=== PATIENT | female | born 1975 | race Two or more races ===

== ENCOUNTER 2017-04-01 20:26 | Inpatient (IN) | payer OTHER ==
[2017-04-01 20:30] VITALS: BMI 36.7
--- NOTE | 2017-04-01 20:57 | PDOC ---
History of Present Illness - General Chief Complaint: Vaginal Bleeding Stated Complaint: VAGINAL BLEEDING Time Seen by Provider: 04/01/17 20:37 History Source: Patient Exam Limitations: No Limitations - History of Present Illness Travel History: No Initial Comments: 04/01/17 22:08 LMP: 01/12/2017 41-year-old female with no medical history presents to the emergency department complaining of vaginal bleeding with pelvic cramps. Pain is described as 6/10 dull nonradiating constant cramping with moderate vaginal bleed. Patient was seen in the emergency department 3 days ago and was diagnosed with demise at approximately 12 weeks gestation. Patient denies headache, dizziness, lightheadedness, nausea/vomiting, fever/chills, chest pain, shortness of breath , flank pains, urinary symptoms: Frequency/urgency/hesitancy, hematuria. Past History - Past Medical History Allergies/Adverse Reactions: Allergies Allergy/AdvReac Type Severity Reaction Status Date / Time No Known Allergies Allergy Verified 04/01/17 20:30 Home Medications: Ambulatory Orders NK [No Known Home Medication] 03/30/17 Anemia: No Asthma: Yes - Reproductive History (#): 6 Para: 5 - Psycho/Social/Smoking Cessation Hx Anxiety: No Suicidal Ideation: No Smoking History: Never smoked Have you smoked in the past 12 months: No Hx Alcohol Use: No Drug/Substance Use Hx: No Substance Use Type: None Abd/GI Specific PMHX - Complaint Specific PMHX Colitis: No Diverticulitis: No Gall Bladder Disease: No GERD: No Hepatitis: No Irritable Bowel Synd (IBS): No GI Ulcer Disease: No Review of Systems - Review of Systems Able to Perform ROS?: Yes Comments:: 04/01/17 22:09 CONSTITUTIONAL: Absent: fever, chills, diaphoresis, generalized weakness, malaise, loss of appetite HEENT: Absent: rhinorrhea, nasal congestion, throat pain, throat swelling, difficulty swallowing, mouth swelling, ear pain, eye pain, visual Changes CARDIOVASCULAR: Absent: chest pain, loss of consciousness, palpitations, irregular heart rate, peripheral edema RESPIRATORY: Absent: cough, shortness of breath, dyspnea with exertion, orthopnea, wheezing, stridor, hemoptysis GASTROINTESTINAL: Absent: abdominal pain, abdominal distension, nausea, vomiting, diarrhea, constipation, melena, hematochezia GENITOURINARY: Absent: dysuria, frequency, urgency, hesitancy, hematuria, flank pain, genital pain MUSCULOSKELETAL: Absent: myalgia, arthralgia, joint swelling SKIN: Absent: rash, itching, pallor HEMATOLOGIC/IMMUNOLOGIC: Absent: easy bleeding, easy bruising, lymphadenopathy, frequent infections ENDOCRINE: Absent: unexplained weight gain, unexplained weight loss, heat intolerance, cold intolerance NEUROLOGIC: Absent: headache, focal weakness or paresthesias, dizziness, unsteady gait, seizure, mental status changes, bladder or bowel incontinence PSYCHIATRIC: Absent: anxiety, depression, suicidal or homicidal ideation, hallucinations. Is the patient limited Latvian proficient: No *Physical Exam - Vital Signs Last Vital Signs Temp Pulse Resp BP Pulse Ox 98 F 66 18 147/81 99 04/01/17 20:27 04/01/17 20:27 04/01/17 20:27 04/01/17 20:27 04/01/17 20:27 - Physical Exam Comments: 04/01/17 22:09 GENERAL: Well developed, well nourished. Awake and alert. No acute distress. HEENT: Normocephalic, atraumatic. PERRLA, EOMI. No conjunctival pallor. Sclera are non- icteric. Moist mucous membranes. Oropharynx is clear. NECK: Supple. Full ROM. No JVD. Carotid pulses 2+ and symmetric, without bruits. No thyromegaly. No lymphadenopathy. CARDIOVASCULAR: Regular rate and rhythm. No murmurs, rubs, or gallops. Distal pulses are 2+ and symmetric. PULMONARY: No evidence of respiratory distress. Lungs clear to auscultation bilaterally. No wheezing, rales or rhonchi. ABDOMINAL: Soft. Non-tender. Non-distended. No rebound or guarding. No organomegaly. Normoactive bowel sounds. MUSCULOSKELETAL Normal range of motion at all joints. No bony deformities or tenderness. No CVA tenderness. EXTREMITIES: No cyanosis. No clubbing. No edema. No calf tenderness. SKIN: Warm and dry. Normal capillary refill. No rashes. No jaundice. NEUROLOGICAL: Alert, awake, appropriate. Cranial nerves 2-12 intact. No deficits to light touch and temperature in face, upper extremities and lower extremities. No motor deficits in the in face, upper extremities and lower extremities. Normoreflexic in the upper and lower extremities. Normal speech. Toes are down- going bilaterally. Gait is normal without ataxia. PSYCHIATRIC: Cooperative. Good eye contact. Appropriate mood and affect. Pelvic: External genitalia normal without lesions. Vaginal vault is clear without blood or discharge. Cervix is long and closed. No cervical motion tenderness. Uterus is nontender and normal in size. Adnexa are nontender and without masses. ED Treatment Course - LABORATORY CBC & Chemistry Diagram: 04/01/17 21:07 04/01/17 21:07 - RADIOLOGY Radiograph Interpretation: 04/01/17 22:28 THIS IS A PRELIMINARY REPORT FROM [facility] EXAM: Ultrasound OB less than 14 weeks transabdominal and ultrasound OB less than 14 weeks transvaginal and ultrasound color duplex IMAGES: 50 EXAM DATE AND TIME: 2017-04-01 21:07: 28.0 REASON FOR EXAM: 41-year-old female with vaginal bleeding demise 2 days ago. COMPARISON: None. FINDINGS: Within the endometrium there is a gestational sac. pole crown-rump length measurement equals 7 weeks one day. No heart motion identified. The uterus measures 9.9 x 5.1 x 6.3 cm. There is no evidence of myometrial masses. The right ovary measures 2.5 x 1.6 x 1.5 cm. There are no right ovarian masses. The left ovary is not identified. There is no free fluid in the pelvis. COLOR DUPLEX: There is satisfactory perfusion to the right ovary with normal appearing arterial and venous spectral waveforms. IMPRESSION: Within endometrium there is a gestational sac and pole with no heart motion identified. This is most likely due to demise. If clinically indicated followup evaluation may be needed. No evidence of right ovarian torsion. Left ovary is not identified Progress Note - Progress Note Progress Note: 2320hrs: Spoke to Dr. 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 will come do a D&C in the OR now *DC/Admit/Observation/Transfer Diagnosis at time of Disposition: Retained products of conception - Discharge Dispostion Condition at time of disposition: Guarded Admit: Yes - Referrals Referrals: Rhona Mahmood [Primary Care Provider] - Olimpia Florez MD [Staff Physician] - - Patient Instructions Additional Instructions: Follow up with Dr. Florez Return to the ER for severe/persistent/worsening symptoms
[2017-04-01] MEDS ORDERED: SODIUM CHLORIDE 1,000 ML IV STA (21:13)
[2017-04-01 21:17] LABS: BASOPHIL 0.4 % (0-2.0); EOSINOPHIL 4.5 % (0-4.5); MCH 29.5 pg (25.7-33.7); MEAN CELL VOLUME 89.5 fl (80-96); NEUTROPHILS 41.9 % (42.8-82.8); PLATELET COUNT 214 K/MM3 (134-434); URINE APPEARANCE CLOUDY; URINE BILIRUBIN NEGATIVE (NEGATIVE); URINE COLOR RED; URINE GLUCOSE (UA) NEGATIVE (NEGATIVE); URINE KETONE NEGATIVE (NEGATIVE); URINE LEUK ESTERASE NEGATIVE (NEGATIVE); URINE NITRITE NEGATIVE (NEGATIVE); URINE UROBILINOGEN NEGATIVE mg/dL (0.2-1.0); WHITE BLOOD COUNT 9.9 K/mm3 (4.0-10.0)
[2017-04-01 21:31] LABS: URINE BLOOD 3+ (NEGATIVE)
[2017-04-01 21:32] LABS: URINE PROTEIN 2+ (NEGATIVE)
[2017-04-01 21:59] LABS: URINE RBC 5526 /hpf (0-3); URINE WBC NONE SEEN /hpf (3-5)
[2017-04-01 22:00] LABS: URINE MUCUS FEW
--- NOTE | 2017-04-01 22:33 | PDOC ---
*Physical Exam - Vital Signs Last Vital Signs Temp Pulse Resp BP Pulse Ox 98 F 66 18 147/81 99 04/01/17 20:27 04/01/17 20:27 04/01/17 20:27 04/01/17 20:27 04/01/17 20:27 - Physical Exam Comments: 04/01/17 22:33 The patient was examined by [SUSANA Rivers] under my direct supervision. I personally evaluated the patient. I concur with the above findings and the plan of care. ED Treatment Course - LABORATORY CBC & Chemistry Diagram: 04/01/17 21:07 04/01/17 21:07 - ADDITIONAL ORDERS Additional order review: Laboratory Results 04/01/17 04/01/17 04/01/17 21:07 21:07 21:07 Sodium Cancelled Potassium Cancelled Chloride Cancelled Carbon Dioxide Cancelled Anion Gap Cancelled BUN Cancelled Creatinine Cancelled Creat Clearance w eGFR Cancelled Random Glucose Cancelled Calcium Cancelled Total Bilirubin Cancelled AST Cancelled ALT Cancelled Alkaline Phosphatase Cancelled Total Protein Cancelled Albumin Cancelled Beta HCG, Quant Cancelled Urine Color Red Urine Appearance Cloudy Urine pH 6.0 Urine Protein 2+ H Urine Glucose (UA) Negative Urine Ketones Negative Urine Blood 3+ H Urine Nitrite Negative Urine Bilirubin Negative Urine Urobilinogen Negative Ur Leukocyte Esterase Negative Urine RBC 5526 Cancelled Urine WBC None seen Cancelled Ur Epithelial Cells Few Cancelled Urine Crystals Cancelled Calcium Oxalate Crystal Cancelled Uric Acid Crystals Cancelled Triple Phos Crystals Cancelled Amorphous Phosphates Cancelled Amorphous Urates Cancelled Amorphous Sediment Cancelled Urine Bacteria Cancelled Urine Casts Cancelled Hyaline Casts Cancelled Granular Casts Cancelled Waxy Casts Cancelled RBC Casts Cancelled WBC Casts Cancelled Urine Mucus Few Cancelled Urine Other Cancelled Urine Trichomonas Cancelled Urine Yeast Cancelled 04/01/17 21:07 RBC 4.85 MCV 89.5 MCHC 33.0 RDW 13.0 MPV 9.0 Neutrophils % 41.9 L Lymphocytes % 46.4 H Monocytes % 6.8 Eosinophils % 4.5 Basophils % 0.4 - Medications Given in the ED: ED Medications Discontinued Medications Generic Name Dose Route Start Last Admin Trade Name Freq PRN Reason Stop Dose Admin Sodium Chloride 1,000 mls @ 1,000 mls/hr 04/01/17 21:13 04/01/17 21:25 Normal Saline - IV 04/01/17 22:12 1,000 mls/hr ASDIR STA Administration *DC/Admit/Observation/Transfer Diagnosis at time of Disposition: Retained products of conception - Discharge Dispostion Condition at time of disposition: Guarded
[2017-04-01 22:52] LABS: ALBUMIN 3.3 g/dl (3.4-5.0); ANION GAP 8 (8-16); CALCIUM 8.7 mg/dL (8.5-10.1); CO2 26 mmol/L (21-32); CREATININE 0.6 mg/dL (0.55-1.02); GLUCOSE,RANDOM 97 mg/dL (74-106); SGOT/AST 16 U/L (15-37); SGPT/ALT 23 U/L (12-78); TOT PROT 6.7 g/dl (6.4-8.2)
[2017-04-01 23:08] LABS: ALK PHOS 105 U/L (45-117)
[2017-04-01 23:09] LABS: BILIRUBIN,TOTAL < 0.1 mg/dL (0.2-1.0)
--- NOTE | 2017-04-02 00:45 | CON.OBG ---
Consult Consult Specialty:: OBGYN Reason for Consultation:: Vaginal bleeding in - History of Present Illness Chief Complaint: Vaginal bleeding History of Present Illness: 41 yo seen in ER for vaginal bleeding 2 days ago, returned c/o worsening of bleeding and abdominal pain. Sonogram done and failed to show heart rate. BHCG dropped from 6000 mIU to 2000 mIU. - History Source History Provided By: Patient Limitations to Obtaining History: No Limitations - Past Medical History ...: Yes ...: 6 ...Para: 6 - Past Surgical History Past Surgical History: Yes: None - Alcohol/Substance Use Hx Alcohol Use: No History of Substance Use: reports: None - Smoking History Smoking history: Never smoked Have you smoked in the past 12 months: No - Social History Usual Living Arrangement: With Spouse History of Recent Travel: No Home Medications - Allergies Allergies/Adverse Reactions: Allergies Allergy/AdvReac Type Severity Reaction Status Date / Time No Known Allergies Allergy Verified 04/01/17 20:30 - Home Medications Home Medications: Ambulatory Orders NK [No Known Home Medication] 03/30/17 Family Disease History - Family Disease History Family History: Unremarkable Review of Systems - Review of Systems Constitutional: reports: No Symptoms Eyes: reports: No Symptoms HENT: reports: No Symptoms Neck: reports: No Symptoms Cardiovascular: reports: No Symptoms Respiratory: reports: No Symptoms Gastrointestinal: reports: No Symptoms Genitourinary: reports: Pain, Vaginal Bleeding Breasts: reports: No Symptoms Reported Musculoskeletal: reports: No Symptoms Integumentary: reports: No Symptoms Neurological: reports: No Symptoms Endocrine: reports: No Symptoms Hematology/Lymphatic: reports: No Symptoms Psychiatric: reports: No Symptoms Pain Intensity: 3 Physical Exam-PIPE BUFFER Vital Signs: Vital Signs Temperature 98 F 04/01/17 20:27 Pulse Rate 66 04/01/17 20:27 Respiratory Rate 18 04/01/17 20:27 Blood Pressure 147/81 04/01/17 20:27 O2 Sat by Pulse Oximetry (%) 100 04/01/17 23:23 Constitutional: Yes: Well Nourished Eyes: Yes: Conjunctiva Clear HENT: Yes: Atraumatic Neck: Yes: Supple, Trachea Midline Cardiovascular: Yes: Regular Rate and Rhythm Respiratory: Yes: Regular, CTA Bilaterally Gastrointestinal: Yes: Normal Bowel Sounds Vaginal Exam: Yes: Bleeding Uterus: Yes: Normal Integumentary: Yes: WNL Neurological: Yes: Alert, Oriented ...Motor Strength: WNL Psychiatric: Yes: Alert, Oriented Assessment/Plan Spontaneous Miscariage Pre op for suctioned D&C Consent signed Anesthesia to see patient
--- NOTE | 2017-04-02 00:49 | OP ---
Operative Note - Note: Operative Date: 04/02/17 Pre-Operative Diagnosis: Spontaneous miscariage Operation: Suction D&C Surgeon: Olimpia Florez Anesthesia: General Specimens Removed: Product of conception
[2017-04-02] MEDS ORDERED: METOCLOPRAMIDE HCL INJECTION 10 MG/2 ML VIAL ONE (01:12)
[2017-04-02] MEDS ORDERED: PROPOFOL 20 ML ONE ×2 (01:20→01:21)
[2017-04-02] MEDS ORDERED: SUCCINYLCHOLINE CHLORIDE 200 MG/10 ML VIAL ONE (01:21)
[2017-04-02] MEDS ORDERED: DESFLURANE GAS 240 ML BOTTLE IH ONE (01:21)
[2017-04-02] MEDS ORDERED: LIDOCAINE HCL/PF 2% SDV 5ML VIAL ONE (01:22)
[2017-04-02] MEDS ORDERED: ONDANSETRON 4 MG/2 ML VIAL ONE (01:40)
[2017-04-02] MEDS ORDERED: ONDANSETRON 4 MG/2 ML VIAL IVPUSH PRN (01:58)
[2017-04-02] MEDS ORDERED: PROMETHAZINE HCL 25 MG/1 ML VIAL IVPUSH PRN (01:58)
[2017-04-02] MEDS ORDERED: LACTATED RINGERS SOLUTION 1,000 ML IV SCH (02:00)
[2017-04-02 03:00] VITALS: BP 138/51; PULSE 117; TEMP 98.2
--- NOTE | 2017-04-03 13:23 | OP ---
DATE OF OPERATION: 04/02/2017 PREOPERATIVE DIAGNOSIS: Incomplete . POSTOPERATIVE DIAGNOSIS: Incomplete . PROCEDURE: Suction dilation and curettage. SURGEON: Olimpia Florez MD ANESTHESIA: General. COMPLICATIONS: None. ESTIMATED BLOOD LOSS: 10 mL. DESCRIPTION OF PROCEDURE: The patient was taken to the operating room where general anesthesia was administered. The patient was then placed in lithotomy position. She was then prepped and draped in appropriate sterile fashion. A weighted speculum was placed in the vagina. The anterior lip of the cervix was grasped with a single-tooth tenaculum. Then a 7-mm suction curette was then gently introduced into the uterine cavity. The suction curette was rotated to clear the uterus of products of conception. Then a sharp curettage was then performed. The suction curette was reintroduced to clear the uterus of all remaining products of conception. Then the instruments were removed. The patient was taken out of lithotomy position. She was taken to PACU in stable condition. PATHOLOGY: Products of conception. Anthony RUELAS/[id number]
--- NOTE | 2017-04-04 13:48 | PATH ---
Surgical Pathology Report Patient Name: VLADIMIR DAVILA Med. Rec. #: [id number] /Age/Gender: 1975 (Age: 41) / F Account: [id number] Location: [address] [place] [address]/[facility] Taken: 04/02/2017 Received: 04/03/2017 Reported: 04/04/2017 Physicians: Olimpia Florez M.D. Specimen(s) Received PRODUCTS OF CONCEPTION Clinical History Spontaneous miscarriage Final Diagnosis PRODUCTS OF CONCEPTION: SOMATIC TISSUE IDENTIFIED. CHORIONIC VILLUS TISSUE PRESENT, FOCALLY HYDROPIC. FRAGMENTS OF DECIDUA. Electronically Signed Tristen Gonzales M.D. Gross Description Received in formalin, labeled with "products of conception" is a 9 x 7 x 2.5 cm in aggregate size multiple fragments of burdick-red and burdick-henry hemorrhagic tissue with a 3.5 x 3 x 0.6 cm fragment of burdick-henry tissue on Telfa pad, which is consistent with chorionic villous tissue. [employer] sections are submitted in three cassettes as follows: Cassettes #1 and 2 - chorionic tissue, cassette #3 -additional section of hemorrhagic tissue. AF/04/03/2017 final/04/03/2017
== END 2017-04-02 04:00 | disposition home or self-care (01) | DRG 544 ==
LOC: JER 20:26 → MERGE 23:35 → J6S 23:35
PROVIDERS: ADMIT Obstetrics & Gynecology; ATTEND Obstetrics & Gynecology
PROC: 10D17ZZ Extraction of Products of Conception, Retained, Via Natural or Artificial Opening (ICD-10-PCS; principal; 2017-04-02 00:10)
DX: O03.4 Incomplete spontaneous abortion without complication (principal); E66.9 Obesity, unspecified; Z68.36 Body mass index [BMI] 36.0-36.9, adult
CPT/HCPCS: 36415; 76817-TC; 80053; 81003; 81015; 84702; 85025; 86850; 86870; 86900; 86901; 86902; 88305-TC; 94760; 99285-25

== ENCOUNTER 2017-04-14 21:01 | Emergency (ER) | payer OTHER ==
[2017-04-14 21:23] VITALS: BP 172/86; PULSE 102; TEMP 98; BMI 35.6
[2017-04-14] MEDS ORDERED: LORazepam 0.5 MG TABLET ONE (21:42)
[2017-04-14] MEDS ORDERED: LORazepam 0.5 MG TABLET PO ONE (21:43)
--- NOTE | 2017-04-14 21:43 | PDOC ---
History of Present Illness - General Chief Complaint: Psychiatric Stated Complaint: PANIC ATTACK Time Seen by Provider: 04/14/17 21:27 History Source: Patient, Spouse Exam Limitations: No Limitations - History of Present Illness Initial Comments: 04/14/17 21:43 Patient came with for evaluation of mild to moderate Kiley contact. States had a miscarriage 2 weeks ago here, with DNC procedure that was uneventful. Was an unplanned . States since that time has had progressive anxiety where today she saw her PMD and was told had hypercholesterolemia. States that caused her anxiety to increase and she is felt short of breath and nervous since that time. Denies palpitations but states feels heart is racing, no dizziness and no hyperventilation but feels some air hunger. Suffered same type of panic attacks approximately 8 years ago for approximately 8 months, requiring medication but that psychiatric situation resolved. Denies homicidal or suicidal ideation 04/14/17 21:46 04/14/17 21:48 Timing/Duration: unsure, getting worse Severity: mild Associated Symptoms: reports: denies symptoms Past History - Travel Traveled outside of the country in the last 30 days: No Close contact w/someone who was outside of country & ill: No - Past Medical History Allergies/Adverse Reactions: Allergies Allergy/AdvReac Type Severity Reaction Status Date / Time No Known Allergies Allergy Verified 04/14/17 21:19 Home Medications: Ambulatory Orders Ciprofloxacin HCl/Dexameth [Ciprodex Otic Suspension] 4 drop BID #1 bottle Mag Hydrox/Alh/Smc/Dpha/Lido [Magic Mouthwash *Sjr Formula* -] 5 ml MM Q6HPO #1 mouthwash 07/04/16 NK [No Known Home Medication] 03/30/17 Anemia: No Asthma: Yes - Reproductive History (#): 6 Para: 5 - Psycho/Social/Smoking Cessation Hx Anxiety: Yes Suicidal Ideation: No Smoking Status: No Smoking History: Never smoked Have you smoked in the past 12 months: No Number of Cigarettes Smoked Daily: 0 Information on smoking cessation initiated: No Hx Alcohol Use: No Drug/Substance Use Hx: No Substance Use Type: None Hx Substance Use Treatment: No Review of Systems - Review of Systems Able to Perform ROS?: Yes Is the patient limited Occitan proficient: Yes Constitutional: Yes: See HPI, Malaise. No: Symptoms Reported, Chills, Fever, Loss of Appetite HEENTM: Yes: See HPI. No: Symptoms Reported Respiratory: Yes: See HPI. No: Symptoms reported Neurological: No: Symptoms reported Psychiatric: Yes: Anxiety, Depression, Stressors All Other Systems: Reviewed and Negative *Physical Exam - Vital Signs Last Vital Signs Temp Pulse Resp BP Pulse Ox 98.0 F 102 H 20 172/86 98 04/14/17 21:19 04/14/17 21:19 04/14/17 21:19 04/14/17 21:19 04/14/17 21:19 - Physical Exam General Appearance: Yes: Nourished, Appropriately Dressed. No: Apparent Distress HEENT: positive: ART, Normal ENT Inspection, Normal Voice, TMs Normal, Pharynx Normal Neck: positive: Supple. 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 Patient post / miscarriage 2 weeks. Encouraged follow-up with PMD and given one dose of 0.5 mg of Ativan and instructed to take one half that dose to take edge off tonight and encouraged using holistic methods until evaluated by PMD and possible further therapy as needed. *DC/Admit/Observation/Transfer Diagnosis at time of Disposition: Panic attacks - Discharge Dispostion Disposition: HOME Condition at time of disposition: Stable Admit: No - Patient Instructions Printed Discharge Instructions: DI for Panic Disorder, Anxiety and Panic Attacks (Alternative Therapy) Additional Instructions: Rest, avoid strenuous activity or exercise until feelings of well being May try yoga or other relaxation techniques to help calm May take one half of tablet 0.5 mg Ativan and repeat in 8 hours if needed May use Benadryl for calming agent and [id number] medications and holistic medications including chamomile tea, soups, old-fashioned remedies Call and see PMD Monday to notify of need for anti-anxiety medication and perhaps further treatment.
== END 2017-04-14 22:00 | disposition home or self-care (01) ==
LOC: JER 21:01 → JERFT 21:01
DX: F41.0 Panic disorder [episodic paroxysmal anxiety] (principal); J45.909 Unspecified asthma, uncomplicated
CPT/HCPCS: 99281-25

== ENCOUNTER 2017-06-04 10:43 | Emergency (ER) | payer OTHER ==
[2017-06-04 10:53] VITALS: BP 142/71; PULSE 99; TEMP 98.7; BMI 35.7
[2017-06-04] MEDS ORDERED: ALBUTEROL SO4 2.5/IPRATROPIUM 0.5 INH SOL 3 ML VIAL.NEB. NEB ONE (11:02)
--- NOTE | 2017-06-04 11:46 | PDOC ---
History of Present Illness - General Chief Complaint: Asthma Stated Complaint: DIFFICULTY OF BREATH Time Seen by Provider: 06/04/17 11:39 History Source: Patient Exam Limitations: No Limitations - History of Present Illness Initial Comments: 06/04/17 11:42 Patient is a 42-year-old female with history of asthma and anxiety reports yesterday started to develop a cough cold-like symptoms, today started wheezing and had difficulty breathing. Patient able to speak full sentences, no acute distress, nasal congestion noted. Past Medical History: Denies. Allergies: No known allergies Medications: None Family History: Non-contributory Social History: Denies smoking, alcohol use, or IVDU Vital signs on arrival are notable for pulse of 96. Review of Systems GENERAL/CONSTITUTIONAL: No fever or chills. No weakness. No weight change. HEAD, EYES, EARS, NOSE AND THROAT: + nasal congestion No change in vision. No ear pain or discharge. No sore throat. CARDIOVASCULAR: No chest pain or shortness of breath. RESPIRATORY: + cough, + wheezing, no hemoptysis. GASTROINTESTINAL: No nausea, vomiting, diarrhea or constipation. No rectal bleeding. GENITOURINARY: No dysuria, frequency, or change in urination. MUSCULOSKELETAL: No joint or muscle swelling or pain. No neck or back pain. SKIN : No rash or easy bruising. NEUROLOGIC: No headache, vertigo, loss of consciousness, or loss of sensation. PSYCHIATRIC: No depression or anxiety. ENDOCRINE: No increased thirst. No abnormal weight change. HEMATOLOGIC/LYMPHATIC: No anemia, easy bleeding, or history of blood clots. ALLERGIC/IMMUNOLOGIC: No hives or skin allergy. No latex allergy. Physical Exam: GENERAL: The patient is awake, alert, and fully oriented, in no acute distress. HEAD: Normal with no signs of trauma. EYES: Pupils equal, round and reactive to light, extraocular movements intact, sclera anicteric, conjunctiva clear. ENT: Ears normal, nares patent, oropharynx clear without exudates. Moist mucous membranes. No uvula deviation NECK: Normal range of motion, supple without lymphadenopathy, JVD, or masses. LUNGS: Breath sounds equal, expiratory wheezes, no crackles, positive rhonchi HEART: Regular rate and rhythm, normal S1 and S2 without murmur, rub or gallop. ABDOMEN: Soft, nontender, normoactive bowel sounds. No guarding, no rebound. No masses. No bruising or abrasions MUSCULOSKELETAL: Normal range of motion, no edema. No clubbing or cyanosis. No cords, erythema, or tenderness. No CVA Tenderness with fist. NEUROLOGICAL: Cranial nerves II through XII grossly intact. Normal speech, normal gait. SKIN: Warm, Dry, normal turgor, no rashes or lesions noted. Past History - Past Medical History Allergies/Adverse Reactions: Allergies Allergy/AdvReac Type Severity Reaction Status Date / Time No Known Allergies Allergy Verified 06/04/17 10:53 Home Medications: Ambulatory Orders Albuterol Sulfate Inhaler - [Ventolin HFA Inhaler -] 1 - 2 inh PO Q4H #1 inhaler 06/04/17 Azithromycin [Zithromax 250mg Tablets -] 250 mg PO UTDICT #6 tab 06/04/17 Anemia: No Asthma: Yes Psychiatric Problems: Yes (anxiety, not on meds) - Reproductive History (#): 6 Para: 5 - Suicide/Smoking/Psychosocial Hx Smoking Status: No Smoking History: Never smoked Have you smoked in the past 12 months: No Number of Cigarettes Smoked Daily: 0 Information on smoking cessation initiated: No Hx Alcohol Use: No Drug/Substance Use Hx: No Substance Use Type: None Hx Substance Use Treatment: No *Physical Exam - Vital Signs Last Vital Signs Temp Pulse Resp BP Pulse Ox 98.7 F 99 H 19 142/71 100 06/04/17 10:51 06/04/17 10:51 06/04/17 10:51 06/04/17 10:51 06/04/17 10:51 ED Treatment Course - Medications Given in the ED: ED Medications Discontinued Medications Generic Name Dose Route Start Last Admin Trade Name Freq PRN Reason Stop Dose Admin Albuterol/Ipratropium 1 amp 06/04/17 11:02 06/04/17 11:03 Duoneb - NEB 06/04/17 11:03 1 amp NOW ONE Administration Medical Decision Making - Medical Decision Making 06/04/17 11:46 A/P: Patient here for asthma exacerbation with upper respiratory infection. Patient with audible wheezes and rhonchi, Combivent treatment given with good result second albuterol given. Patients lungs clear after treatment. Please see patient home on albuterol as needed, azithromycin. PMD in 3 days if symptoms persist. I discussed the physical exam findings, ancillary test results and final diagnoses with the patient. I answered all of the patient's questions. The patient was satisfied with the care received and felt comfortable with the discharge plan and treatment plan. The patient will call to arrange follow-up and will return to the Emergency Department with any new, persistent or worsening symptoms. *DC/Admit/Observation/Transfer Diagnosis at time of Disposition: Upper respiratory infection Qualifiers: URI type: unspecified URI Qualified Code(s): J06.9 - Acute upper respiratory infection, unspecified - Discharge Dispostion Disposition: HOME Condition at time of disposition: Good Admit: No - Prescriptions Prescriptions: Albuterol Sulfate Inhaler - [Ventolin HFA Inhaler -] 1 - 2 inh PO Q4H #1 inhaler Azithromycin [Zithromax 250mg Tablets -] 250 mg PO UTDICT #6 tab - Patient Instructions Printed Discharge Instructions: Asthma -- Adult Additional Instructions: Keep head of bed elevated 45 when sleeping Albuterol every 4 hours as needed Cool air humidifier at night Antibiotics as ordered until completed Motrin for fever greater than 101 Followup in the primary care doctor's office in 2 days for evaluation. If any respiratory distress, increased cough, inability to drink, increased wheezing please return immediately to emergency department. - Post Discharge Activity Forms/Work/School Notes: Back to Work
[2017-06-04] MEDS ORDERED: ALBUTEROL SO4 0.083% IH SOL 2.5 MG/3 ML VIAL.NEB. NEB ONE (11:56)
== END 2017-06-04 12:50 | disposition home or self-care (01) ==
LOC: JERFT 10:43
PROC: 3E0F7GC Introduction of Other Therapeutic Substance into Respiratory Tract, Via Natural or Artificial Opening (ICD-10-PCS; principal; 2017-06-04)
PROC: 3E0F7GC Introduction of Other Therapeutic Substance into Respiratory Tract, Via Natural or Artificial Opening (ICD-10-PCS; 2017-06-04)
DX: J45.901 Unspecified asthma with (acute) exacerbation (principal); J06.9 Acute upper respiratory infection, unspecified
CPT/HCPCS: 94640; 99281-25

== ENCOUNTER 2017-06-04 22:55 | Emergency (ER) | payer OTHER ==
[2017-06-04 23:17] VITALS: BMI 35.6
[2017-06-05] MEDS ORDERED: ALBUTEROL SO4 2.5/IPRATROPIUM 0.5 INH SOL 3 ML VIAL.NEB. NEB ONE ×2 (00:29)
[2017-06-05] MEDS ORDERED: DEXAMETHASONE LIQUID 0.5 MG/5 ML 240 ML BULK BOTTLE PO ONE (00:42)
[2017-06-05] MEDS ORDERED: DEXAMETHASONE SOD PHOSPHATE 10 MG/1 ML VIAL ONE (00:54)
--- NOTE | 2017-06-05 01:05 | PDOC ---
History of Present Illness - General Chief Complaint: Respiratory Stated Complaint: ASTHMA ATTACK Time Seen by Provider: 06/04/17 23:59 - History of Present Illness Initial Comments: 06/05/17 01:04 CHIEF COMPLAINT: cough, SOB HISTORY OF PRESENT ILLNESS: 42 yo F with hx of asthma presents to ED with cough since yesterday. Patient was seen in fast track earlier today for wheezing and SOB and was discharged home with azithromycin and albuterol pump. Patient states she used the albuterol pump three times without relief and continued having wheezing and SOB. Patient is in no respiratory distress on arrival. Patient denies any fever, chills, nausea, vomiting, diarrhea. No recent travel or sick contacts. PAST MEDICAL HISTORY: asthma FAMILY HISTORY: Denies SOCIAL HISTORY: Denies tobacco, alcohol, illicit drug use. SURGICAL HISTORY: Denies ALLERGIES: No known drug allergies REVIEW OF SYSTEMS General/Constitutional: Denies fever or chills. Denies weakness, weight change. Cardiovascular: Denies chest pain. Respiratory: Cough x 2 days, wheezing. Gastrointestinal: Denies nausea, vomiting, diarrhea or constipation. PHYSICAL EXAM General Appearance: Well-appearing, appropriately dressed. No apparent distress , no intoxication. HEENT: EOMI, PERRLA, normal ENT inspection, normal voice, TMs normal, pharynx normal. No conjunctival pallor. No photophobia, scleral icterus. Respiratory/Chest: Diffuse wheezing bilaterally. No shortness of breath, chest tenderness, respiratory distress, accessory muscle use. No crackles, rales, rhonchi, stridor,dullness Cardiovascular: RRR. S1, S2. Gastrointestinal/Abdominal: Normal bowel sounds. Abdomen soft, non-distended. No tenderness or rebound tenderness. No organomegaly, pulsatile mass, guarding , hernia, hepatomegaly, splenomegaly. Musculoskeletal/Extremities: Normal inspection. FROM of all extremities, normal capillary refill. Pelvis Stable. No CVA tenderness. No tenderness to extremities, pedal edema, swelling, erythema or deformity. Integumentary: Appropriate color, dry, warm. No cyanosis, erythema, jaundice or rash Neurologic: classroom technology coach II-XII intact. Fully oriented, alert. Appropriate mood/affect. Motor strength 5/5. No appreciable EOM palsy, facial droop or sensory deficit. 06/05/17 02:46 Past History - Past Medical History Allergies/Adverse Reactions: Allergies Allergy/AdvReac Type Severity Reaction Status Date / Time No Known Allergies Allergy Verified 06/04/17 23:14 Home Medications: Ambulatory Orders Albuterol Sulfate Inhaler - [Ventolin HFA Inhaler -] 1 - 2 inh PO Q4H #1 inhaler 06/04/17 Azithromycin [Zithromax 250mg Tablets -] 250 mg PO UTDICT #6 tab 06/04/17 Anemia: No Asthma: Yes Psychiatric Problems: Yes (anxiety, not on meds) - Reproductive History (#): 6 Para: 5 - Suicide/Smoking/Psychosocial Hx Smoking Status: No Smoking History: Never smoked Have you smoked in the past 12 months: No Number of Cigarettes Smoked Daily: 0 Information on smoking cessation initiated: No Hx Alcohol Use: No Drug/Substance Use Hx: No Substance Use Type: None Hx Substance Use Treatment: No *Physical Exam - Vital Signs Last Vital Signs Temp Pulse Resp BP Pulse Ox 98.6 F 115 H 20 154/89 96 06/04/17 23:15 06/04/17 23:15 06/04/17 23:15 06/04/17 23:15 06/04/17 23:15 ED Treatment Course - RADIOLOGY Radiology Studies Ordered: Category Date Time Status CHEST PA & LAT [RAD] Stat Radiology 06/05/17 00:42 Ordered - Medications Given in the ED: ED Medications Discontinued Medications Generic Name Dose Route Start Last Admin Trade Name Freq PRN Reason Stop Dose Admin Albuterol/Ipratropium 1 amp 06/05/17 00:00 06/05/17 00:34 Duoneb - NEB 06/05/17 00:01 1 amp ONCE ONE Administration Dexamethasone 10 mg 06/05/17 00:42 06/05/17 00:57 Decadron Liquid - PO 06/05/17 00:43 10 mg ONCE ONE Administration Medical Decision Making - Medical Decision Making 06/05/17 02:49 42 yo F with hx of asthma presents to ED with cough since yesterday. -CXR -Duoneb -Decadron 10 mg po CXR negative for infiltrates. Patient reassessed; lungs CTAB and patient reports feeling better at this time. Advised patient to complete medications as prescribed and f/u with PCP by the end of the week. Advised patient of signs and symptoms for return to ER; patient verbalized understanding and agrees to plan. *DC/Admit/Observation/Transfer Diagnosis at time of Disposition: Asthma attack, Bronchitis - Discharge Dispostion Disposition: HOME Condition at time of disposition: Stable Admit: No - Referrals Referrals: Megan Tsang [Primary Care Provider] - - Patient Instructions Printed Discharge Instructions: DI for Acute Bronchitis, DI for Asthma -- Adult Additional Instructions: As discussed, please finish the medication prescribed to you earlier today. If you develop fever, chills, nausea, vomiting, diarrhea, or worsening shortness of breath unrelieved by your albuterol pump, or any new or worsening symptoms, please return to the ER.
[2017-06-05 02:49] VITALS: BP 120/73; PULSE 85; TEMP 98.2
== END 2017-06-05 02:52 | disposition home or self-care (01) ==
LOC: JER 22:55
PROC: 3E0F7GC Introduction of Other Therapeutic Substance into Respiratory Tract, Via Natural or Artificial Opening (ICD-10-PCS; principal; 2017-06-04)
DX: J45.901 Unspecified asthma with (acute) exacerbation (principal); J40 Bronchitis, not specified as acute or chronic
CPT/HCPCS: 71020-TC; 84703; 99282-25

== ENCOUNTER 2017-07-04 11:05 | Emergency (ER) | payer OTHER ==
[2017-07-04 11:14] VITALS: BP 141/98; PULSE 107; TEMP 98.1; BMI 34.9
== END 2017-07-04 12:47 | disposition left against medical advice (07) ==
LOC: JER 11:05
DX: Z53.21 Procedure and treatment not carried out due to patient leaving prior to being seen by health care provider (principal)
CPT/HCPCS: 99281-25

== ENCOUNTER 2017-08-16 01:36 | Emergency (ER) | payer OTHER ==
[2017-08-16] MEDS ORDERED: predniSONE 20 MG TABLET (UD) PO ONE (02:17)
[2017-08-16] MEDS ORDERED: ALBUTEROL SO4 0.083% IH SOL 2.5 MG/3 ML VIAL.NEB. NEB ONE ×2 (02:17→02:27)
--- NOTE | 2017-08-16 02:17 | PDOC ---
History of Present Illness - General Exam Limitations: No Limitations - History of Present Illness Initial Comments: 08/16/17 02:40 Patient is a 42 year old female with a significant past medical history of asthma, HLD, and depression who presents to the ED with complaints of SOB that began 3 days ago. Patient reports experiencing sudden onset episodes of SOB while at home with no signs of subsiding. She reports using her inhaler multiple times over the last 3 days with no relief. Patient reports not being on steroids recently but states she has taken them in the past when prescribed. Denies chest pain. Denies nausea, vomiting. Denies fevers, chills. Denies contact with sick individuals, out of state travel. Denies any other symptoms. Allergies: None Social history: No smoking. No alcohol. No illicit drugs. Surgical history: None PMD: Dr. Megan Tsang <Walter Roach - Last Filed: 08/16/17 02:40> - General History Source: Patient <Gabino Galvan - Last Filed: 08/16/17 02:59> - General Stated Complaint: ASTHMA Time Seen by Provider: 08/16/17 02:14 Past History <Walter Roach - Last Filed: 08/16/17 02:40> - Past Medical History Anemia: No Asthma: Yes COPD: No Psychiatric Problems: Yes (anxiety, not on meds) - Reproductive History (#): 6 Para: 5 - Suicide/Smoking/Psychosocial Hx Smoking Status: No Smoking History: Never smoked Have you smoked in the past 12 months: No Number of Cigarettes Smoked Daily: 0 Hx Alcohol Use: No Drug/Substance Use Hx: No Substance Use Type: None Hx Substance Use Treatment: No <Gabino Galvan - Last Filed: 08/16/17 02:59> - Past Medical History Allergies/Adverse Reactions: Allergies Allergy/AdvReac Type Severity Reaction Status Date / Time No Known Allergies Allergy Verified 08/16/17 02:20 Home Medications: Ambulatory Orders Azithromycin [Zithromax 250mg Tablets -] 250 mg PO UTDICT #6 tab 06/04/17 Meclizine HCl [Antivert -] 25 mg PO QID #28 tablet 07/17/17 Albuterol 0.083% Nebulizer Dahlia [Ventolin 0.083% Nebulizer Soln -] 1 neb NEB Q6H #30 vial 08/16/17 Albuterol Sulfate Inhaler - [Ventolin HFA Inhaler -] 1 - 2 inh PO Q4H #1 inhaler 08/16/17 Prednisone [Deltasone -] 40 mg PO DAILY #10 tablet 08/16/17 Review of Systems - Review of Systems Able to Perform ROS?: Yes Comments:: 08/16/17 02:40 CONSTITUTIONAL: Absent: fever, no chills, no fatigue EYES: Absent: visual changes ENT: Absent: ear pain, no sore throat CARDIOVASCULAR: Absent: chest pain, no palpitations RESPIRATORY: +SOB Absent: GI: Absent: abdominal pain, no nausea, no vomiting, no constipation, no diarrhea GENITOURINARY: Absent: dysuria, no frequency, no hematuria MUSCULOSKELETAL: Absent: back pain, no arthralgia, no myalgia SKIN: Absent: rash All Other Systems: Reviewed and Negative <Walter Roach - Last Filed: 08/16/17 02:40> *Physical Exam - Vital Signs Last Vital Signs Temp Pulse Resp BP Pulse Ox 98.7 F 75 16 131/73 98 08/16/17 02:19 08/16/17 02:19 08/16/17 02:19 08/16/17 02:19 08/16/17 02:19 - Physical Exam Comments: 08/16/17 02:40 GENERAL: Well-appearing, well-nourished. No apparent distress. HEENT: Normocephalic, atraumatic. PERRL, EOM intact. CARDIOVASCULAR: Normal S1, S2. Regular rate and rhythm. PULMONARY: +Scattered Wheezing. Clear to auscultation bilaterally. ABDOMEN: Soft, non-distended, non-tender. EXTREMITIES: Normal ROM in all four extremities. No gross deformities. SKIN: Warm, dry. No rash NEUROLOGICAL: No focal neurological deficits. <Walter Roach - Last Filed: 08/16/17 02:40> ED Treatment Course - Medications Given in the ED: ED Medications Discontinued Medications Generic Name Dose Route Start Last Admin Trade Name Freq PRN Reason Stop Dose Admin Albuterol Sulfate 1 amp 08/16/17 02:17 08/16/17 02:32 Ventolin 0.083% Nebulizer Soln - NEB 08/16/17 02:18 1 amp ONCE ONE Administration Prednisone 60 mg 08/16/17 02:17 08/16/17 02:32 Deltasone - PO 08/16/17 02:18 60 mg ONCE ONE Administration <Walter Roach - Last Filed: 08/16/17 02:40> Medical Decision Making - Medical Decision Making 08/16/17 02:58 Dr. Galvan: The scribe's documentation has been prepared under my direction and personally reviewed by me in its entirery. I confirm that the note above accurately reflects all work, treatment, procedures, and medical decision making performed by me. Pt feels better after one albuterol neb and prednisone. Pt will be discharged. <Gabino Galvan - Last Filed: 08/16/17 02:59> *DC/Admit/Observation/Transfer - Attestations Scribe Attestion: 08/16/17 02:40 Documentation prepared by Walter Roach, acting as medical oncologist for Gabino Galvan MD/DO. <Walter Roach - Last Filed: 08/16/17 02:40> - Discharge Dispostion Admit: No <Gabino Galvan - Last Filed: 08/16/17 02:59> Diagnosis at time of Disposition: Asthma attack - Discharge Dispostion Disposition: HOME Condition at time of disposition: Improved - Prescriptions Prescriptions: Albuterol 0.083% Nebulizer Dahlia [Ventolin 0.083% Nebulizer Soln -] 1 neb NEB Q6H #30 vial Albuterol Sulfate Inhaler - [Ventolin HFA Inhaler -] 1 - 2 inh PO Q4H #1 inhaler Prednisone [Deltasone -] 40 mg PO DAILY #10 tablet - Referrals Referrals: Megan Tsang [Primary Care Provider] - Hemant Neal MD [Staff Physician] - - Patient Instructions Printed Discharge Instructions: DI for Asthma -- Adult - Post Discharge Activity
[2017-08-16 02:21] VITALS: BP 131/73; PULSE 75; TEMP 98.7; BMI 31.3
[2017-08-16] MEDS ORDERED: predniSONE 20 MG TABLET (UD) ONE (02:27)
== END 2017-08-16 03:20 | disposition home or self-care (01) ==
LOC: JER 01:36
PROC: 3E0F7GC Introduction of Other Therapeutic Substance into Respiratory Tract, Via Natural or Artificial Opening (ICD-10-PCS; principal; 2017-08-16)
DX: J45.901 Unspecified asthma with (acute) exacerbation (principal); E78.5 Hyperlipidemia, unspecified; F32.9 Major depressive disorder, single episode, unspecified
CPT/HCPCS: 94640; 99281-25

== ENCOUNTER 2017-10-29 20:55 | Inpatient (IN) | payer OTHER ==
[2017-10-29 21:26] LABS: URINE APPEARANCE CLEAR; URINE BILIRUBIN NEGATIVE (NEGATIVE); URINE BLOOD NEGATIVE (NEGATIVE); URINE COLOR YELLOW; URINE GLUCOSE (UA) NEGATIVE (NEGATIVE); URINE KETONE NEGATIVE (NEGATIVE); URINE LEUK ESTERASE TRACE (NEGATIVE); URINE NITRITE NEGATIVE (NEGATIVE); URINE PROTEIN NEGATIVE (NEGATIVE); URINE UROBILINOGEN 4.0 E.U/dl mg/dL (0.2-1.0)
[2017-10-29 21:28] LABS: HCG,QUALITATIVE URINE NEGATIVE
[2017-10-29 21:30] LABS: EPI CELLS FEW /HPF (FEW); URINE MUCUS RARE
--- NOTE | 2017-10-29 22:18 | PDOC ---
History of Present Illness - General Chief Complaint: Pain, Acute Stated Complaint: STOMACH PAIN Time Seen by Provider: 10/29/17 22:18 History Source: Patient - History of Present Illness Initial Comments: 10/29/17 22:41 42 year old with epigastric tenderness x1 day reports occasional diarrhea since starting the antibiotics. patient is currently on treatment for h pylori with triple therapy for the last 10 days. reports that intermittent pain since patient diagnosed with H-Pylori. denies fever/ chills, [place] Pmhx: hypercholesteremia, Pshx: Past History - Past Medical History Allergies/Adverse Reactions: Allergies Allergy/AdvReac Type Severity Reaction Status Date / Time No Known Allergies Allergy Verified 10/29/17 21:17 Home Medications: Ambulatory Orders Albuterol 0.083% Nebulizer Dahlia [Ventolin 0.083% Nebulizer Soln -] 1 neb NEB Q6H #30 vial 08/16/17 Amoxicillin - [Amoxicillin 500mg Capsule -] 500 mg PO BID 10/29/17 Clarithromycin [Biaxin -] 500 mg PO BID 10/29/17 Famotidine [Pepcid -] 20 mg PO BID 10/29/17 Lansoprazole [Prevacid] 30 mg PO BID 10/29/17 Anemia: No Asthma: Yes COPD: No Psychiatric Problems: Yes (anxiety, not on meds) - Reproductive History (#): 6 Para: 5 - Immunization History Immunization Up to Date: Yes - Suicide/Smoking/Psychosocial Hx Smoking Status: No Smoking History: Never smoked Have you smoked in the past 12 months: No Number of Cigarettes Smoked Daily: 0 Hx Alcohol Use: No Drug/Substance Use Hx: No Substance Use Type: None Hx Substance Use Treatment: No Abd/GI Specific PMHX - Complaint Specific PMHX Colitis: No Diverticulitis: No Gall Bladder Disease: No GERD: No Hepatitis: No Irritable Bowel Synd (IBS): No GI Ulcer Disease: No Review of Systems - Review of Systems Able to Perform ROS?: Yes Is the patient limited Telugu proficient: No ABD/GI: Yes: Abdominal cramping. No: Symptoms Reported, See HPI, Abdominal Distended, Abd. Pain w/ defecation, Blood Streaked Bowels, Constipated, Diarrhea , Difficulty Swallowing, Nausea, Poor Appetite, Poor Fluid Intake, Rectal Bleeding, Vomiting, Indigestion, Tarry Stools, Other Integumentary: No: Symptoms Reported, See HPI, Bruising, Change in Color, Change in Hair/Nails, Dryness, Erythema, Flushing, Lesions, Lumps, Pallor, Pruritus, Rash, Sweating, Other *Physical Exam - Vital Signs Last Vital Signs Temp Pulse Resp BP Pulse Ox 98.2 F 92 H 18 127/70 99 10/29/17 21:19 10/29/17 21:19 10/29/17 21:19 10/29/17 21:19 10/29/17 21:19 - Physical Exam General Appearance: Yes: Appropriately Dressed Respiratory/Chest: positive: Lungs Clear, Normal Breath Sounds Gastrointestinal/Abdominal: positive: Normal Bowel Sounds, Tender (epigastric area/ upper abdomen), Soft Musculoskeletal: positive: Normal Inspection Extremity: positive: Normal Capillary Refill, Normal Inspection, Normal Range of Motion ED Treatment Course - LABORATORY CBC & Chemistry Diagram: 10/29/17 23:44 10/29/17 23:44 - ADDITIONAL ORDERS Additional order review: Laboratory Results 10/29/17 21:19 Urine Color Yellow Urine Appearance Clear Urine pH 6.[address] [place] 1.024 Urine Protein Negative Urine Glucose (UA) Negative Urine Ketones Negative Urine Blood Negative Urine Nitrite Negative Urine Bilirubin Negative Urine Urobilinogen 4.0 e.u/dl H Ur Leukocyte Esterase Trace Urine WBC (Auto) 1 Urine RBC (Auto) 4 Ur Epithelial Cells Few Urine Mucus Rare Urine HCG, Qual Negative Progress Note - Progress Note Progress Note: A: abdominal pain P: cbc cmp LFTs elevated, with gall stones. protonix US: negative. + tiny gall stones Medical Decision Making - Medical Decision Making 10/30/17 01:52 patient reports feeling better. no abdominal pain, will d/c to follow up with outpatient GI. *DC/Admit/Observation/Transfer Diagnosis at time of Disposition: Epigastric abdominal pain, Fatty liver, Elevated liver enzymes - Discharge Dispostion Admit: Yes - Referrals Referrals: Megan Tsang [Primary Care Provider] - Babak Caputo MD [Staff Physician] - - Patient Instructions Printed Discharge Instructions: Gallstones Additional Instructions: drink plenty of fluids avoid fatty foods follow up with your social work nurse as soon as possible. return to the ER if symptoms worsen. - Post Discharge Activity Forms/Work/School Notes: Back to Work
[2017-10-29] MEDS ORDERED: ONDANSETRON 4 MG TABLET PO ONE (22:49)
[2017-10-29] MEDS ORDERED: PANTOPRAZOLE SODIUM 40 MG VIAL IVPUSH ONE (22:49)
[2017-10-29] MEDS ORDERED: ONDANSETRON 8 MG TABLET (FP) PO ONE ×2 (23:29→23:32)
[2017-10-29] MEDS ORDERED: PANTOPRAZOLE SODIUM 40 MG VIAL ONE (23:30)
[2017-10-29 23:51] LABS: BASO % 0.2 % (0-2.0); EOS % 0.4 % (0-4.5); HEMOGLOBIN 13.9 GM/dL (10.7-15.3); LYMPH % 16.2 % (8-40); MCH 29.8 pg (25.7-33.7); MEAN CELL VOLUME 87.7 fl (80-96); MEAN PLT VOLUME 9.6 fl (7.5-11.1); MONO % 6.4 % (3.8-10.2); NEUT % 76.8 % (42.8-82.8); PLATELET COUNT 193 K/MM3 (134-434); RBC 4.67 M/mm3 (3.60-5.2); RDW 12.8 % (11.6-15.6); WHITE BLOOD COUNT 10.6 K/mm3 (4.0-10.0)
[2017-10-30 00:27] LABS: ALBUMIN 3.6 g/dl (3.4-5.0); ALK PHOS 252 U/L (45-117); ANION GAP 7 (8-16); BILIRUBIN,TOTAL 0.4 mg/dL (0.2-1.0); BLOOD UREA NITROGEN 10 mg/dL (7-18); CALCIUM 8.4 mg/dL (8.5-10.1); CHLORIDE 104 mmol/L (98-107); CO2 29 mmol/L (21-32); CREATININE 0.8 mg/dL (0.55-1.02); GLUCOSE,RANDOM 140 mg/dL (74-106); POTASSIUM 4.2 mmol/L (3.5-5.1); SGPT/ALT 331 U/L (12-78); SODIUM 140 mmol/L (136-145); TOT PROT 7.3 g/dl (6.4-8.2)
[2017-10-30 00:28] LABS: LIPASE 229 U/L (73-393); SGOT/AST 507 U/L (15-37)
--- NOTE | 2017-10-30 02:14 | PN ---
Teaching Attending Note Name of Resident: Jason Goodwin ATTENDING PHYSICIAN STATEMENT I saw and evaluated the patient. I reviewed the resident's note and discussed the case with the resident. I agree with the resident's findings and plan as documented. SUBJECTIVE: 42 F with pmhx. of hld, asthma, and depression who was recently dx'd. with Jessica and on treatment who presents with epigastric abdominal pain. Denies any current abdominal pain, chest pain or pressure. OBJECTIVE: Physical: VS: Vital Signs Period Temp Pulse Resp BP Sys/Iqbal Pulse Ox Last 24 Hr 98.2 F 92 18 127/70 99 GEN: NAD, Resting in bed, AA0X3 HEENT: NCAT, PERRL, Throat without erythema or exudates CARD: RRR S1, S2 RESP: CTAB ABD: BSx4, NTD to palpation EXT: - C/C/E CBCD WBC 10.6 K/mm3 (4.0-10.0) H 10/29/17 23:44 RBC 4.67 M/mm3 (3.60-5.2) 10/29/17 23:44 Hgb 13.9 GM/dL (10.7-15.3) 10/29/17 23:44 Hct 41.0 % (32.4-45.2) 10/29/17 23:44 MCV 87.7 fl (80-96) 10/29/17 23:44 MCHC 34.0 g/dl (32.0-36.0) 10/29/17 23:44 RDW 12.8 % (11.6-15.6) 10/29/17 23:44 Plt Count 193 K/MM3 (134-434) D 10/29/17 23:44 MPV 9.6 fl (7.5-11.1) 10/29/17 23:44 CMP Sodium 140 mmol/L (136-145) 10/29/17 23:44 Potassium 4.2 mmol/L (3.5-5.1) 10/29/17 23:44 Chloride 104 mmol/L (98-107) 10/29/17 23:44 Carbon Dioxide 29 mmol/L (21-32) 10/29/17 23:44 Anion Gap 7 (8-16) L 10/29/17 23:44 BUN 10 mg/dL (7-18) 10/29/17 23:44 Creatinine 0.8 mg/dL (0.55-1.02) 10/29/17 23:44 Creat Clearance w eGFR > 60 (>60) 10/29/17 23:44 Random Glucose 140 mg/dL (74-106) H 10/29/17 23:44 Calcium 8.4 mg/dL (8.5-10.1) L 10/29/17 23:44 Total Bilirubin 0.4 mg/dL (0.2-1.0) D 10/29/17 23:44 AST 507 U/L (15-37) H 10/29/17 23:44 ALT 331 U/L (12-78) H 10/29/17 23:44 Alkaline Phosphatase 252 U/L (45-117) H 10/29/17 23:44 Total Protein 7.3 g/dl (6.4-8.2) 10/29/17 23:44 Albumin 3.6 g/dl (3.4-5.0) 10/29/17 23:44 EKG- PENDING CXR- PENDING Abd US: Liver mildly fatty. Gallbladder with tiny stones. CBD NOT dilated, no signs of choleycystitis ASSESSMENT AND PLAN: 42 F with pmhx. of hld, asthma, and depression who was recently dx'd. with H.Pyelori, who presents with abdominal pain, found to have a gallstones with transaminitis, being admitted for evaluation. 1.) Abdominal pain/H.Pyelori/ Transaminitis - RO Choledocholithiasis/Hepatitis - Chk. Hep. Panel - MRCP - NPO - IVF - GI consult - C/W H. Pyelori meds - FU EKG and CXR 2.) Asthma - Nebs prn 3.) Dvt PPx - SCDs Place in Obs Med-Sx
--- NOTE | 2017-10-30 02:33 | HP ---
CHIEF COMPLAINT: Abdominal pain and nausea. PCP: HISTORY OF PRESENT ILLNESS: 42 yo F with PMHx hypertriglyceridemia, asthma, panic attack, depression and PUD (h pylori A/B-day 10) now presenting with epigastric abdominal pain and nausea. The pain is of sudden onset, dull, 9/10, precipitated by ingestion of fatty foods, lasting for about 3 hours, worsened by movement, non radiating and self resolving. There is associated nausea, but no vomiting. There is no fever, no jaundice, no unexplained weight loss, no change in diet or bowel habits (stool noted to be more loose since starting A/B) . No recent travels or sick contacts. Pt has had similar symptoms in the past- 10/03/2016 and 09/11/2017, lasting 15mins and 25mins respectively. Pt was diagnosed as an outpatient with H. pylori and is on the 10th day of clarithromycin/amox /lansoprazole/famotidine. She was also noted to have hypertriglyceridemia (09/2017), unsure of levels. No dysuria, no SOB, no chest pain or diaphoresis. ER course was notable for: (1)CBC, CMP, (2) Abd US: Liver mildly fatty. Gallbladder with tiny stones. CBD NOT dilated, no signs of cholecystitis (3) Recent Travel: None PAST MEDICAL HISTORY: hypertriglyceridemia, asthma, panic attack, depression PUD PAST SURGICAL HISTORY: C/section (2012) D&C s/p spontaneous 2016 Social History: Smoking:None Alcohol:Never Drugs: Never Family History: Mother -Hep C +ve- s/p transfusion Gall stones-mother and brother Allergies No Known Allergies Allergy (Verified 10/29/17 21:17) HOME MEDICATIONS: Home Medications Medication Instructions Recorded Albuterol 0.083% Nebulizer Dahlia 1 neb NEB Q6H #30 vial 08/16/17 [Ventolin 0.083% Nebulizer Soln -] Amoxicillin - [Amoxicillin 500mg 500 mg PO BID 10/29/17 Capsule -] Clarithromycin [Biaxin -] 500 mg PO BID 10/29/17 Famotidine [Pepcid -] 20 mg PO BID 10/29/17 Lansoprazole [Prevacid] 30 mg PO BID 10/29/17 REVIEW OF SYSTEMS CONSTITUTIONAL: Absent: fever, chills, diaphoresis, generalized weakness, malaise, loss of appetite, weight change HEENT: Absent: rhinorrhea, nasal congestion, throat pain, throat swelling, difficulty swallowing, mouth swelling, ear pain, eye pain, visual changes CARDIOVASCULAR: Absent: chest pain, syncope, palpitations, irregular heart rate, lightheadedness , peripheral edema RESPIRATORY: Absent: cough, shortness of breath, dyspnea with exertion, orthopnea, wheezing, stridor, hemoptysis GASTROINTESTINAL: abdominal pain+,nausea+, Absent: abdominal distension, vomiting, diarrhea, constipation, melena, hematochezia GENITOURINARY: Absent: dysuria, frequency, urgency, hesitancy, hematuria, flank pain, genital pain MUSCULOSKELETAL: Absent: myalgia, arthralgia, joint swelling, back pain, neck pain SKIN: Absent: rash, itching, pallor HEMATOLOGIC/IMMUNOLOGIC: Absent: easy bleeding, easy bruising, lymphadenopathy, frequent infections ENDOCRINE: Absent: unexplained weight gain, unexplained weight loss, heat intolerance, cold intolerance NEUROLOGIC: Absent: headache, focal weakness or paresthesias, dizziness, unsteady gait, seizure, mental status changes, bladder or bowel incontinence PSYCHIATRIC: Absent: anxiety, depression, suicidal or homicidal ideation, hallucinations. PHYSICAL EXAMINATION Vital Signs - 24 hr 10/29/17 21:19 Temperature 98.2 F Pulse Rate 92 H Respiratory 18 Rate Blood Pressure 127/70 O2 Sat by Pulse 99 Oximetry (%) GENERAL: Awake, alert, and fully oriented, in no acute distress. HEAD: Normal with no signs of trauma. EYES: Pupils equal, round and reactive to light, extraocular movements intact, sclera anicteric, conjunctiva clear. EARS, NOSE, THROAT: oropharynx clear without exudates. Moist mucous membranes. NECK: Normal range of motion, supple LUNGS: Breath sounds equal, clear to auscultation bilaterally. No wheezes, and no crackles. HEART: tachycardic, S1 and S2 without murmur, rub or gallop. ABDOMEN: Soft, no areas of tenderness, not distended, normoactive bowel sounds, no guarding, no rebound, no masses. [place] sign absent. MUSCULOSKELETAL: Normal range of motion at all joints. No bony deformities or tenderness. No CVA tenderness. UPPER EXTREMITIES: 2+ pulses, warm, well-perfused. No cyanosis. No clubbing. No peripheral edema. LOWER EXTREMITIES: 2+ pulses, warm, well-perfused. No calf tenderness. No peripheral edema. NEUROLOGICAL: Cranial nerves II-XII intact. Normal speech. Gait not observed PSYCHIATRIC: Cooperative. Good eye contact. Appropriate mood and affect. Laboratory Results - last 24 hr 10/29/17 10/29/17 10/29/17 21:19 23:44 23:44 WBC 10.6 H RBC 4.67 Hgb 13.9 Hct 41.0 MCV 87.7 MCH 29.8 MCHC 34.0 RDW 12.8 Plt Count 193 D MPV 9.6 Neutrophils % 76.8 Lymphocytes % 16.2 D Monocytes % 6.4 Eosinophils % 0.4 Basophils % 0.2 Sodium 140 Potassium 4.2 Chloride 104 Carbon Dioxide 29 Anion Gap 7 L BUN 10 Creatinine 0.8 Creat Clearance w eGFR > 60 Random Glucose 140 H Calcium 8.4 L Total Bilirubin 0.4 D AST 507 H ALT 331 H Alkaline Phosphatase 252 H Total Protein 7.3 Albumin 3.6 Lipase 229 Urine Color Yellow Urine Appearance Clear Urine pH 6.0 Ur Specific Recluse 1.024 Urine Protein Negative Urine Glucose (UA) Negative Urine Ketones Negative Urine Blood Negative Urine Nitrite Negative Urine Bilirubin Negative Urine Urobilinogen 4.0 e.u/dl H Ur Leukocyte Esterase Trace Urine WBC (Auto) 1 Urine RBC (Auto) 4 Ur Epithelial Cells Few Urine Mucus Rare Urine HCG, Qual Negative Abd US: Liver mildly fatty. Gallbladder with tiny stones. CBD NOT dilated, no signs of choleycystitis ASSESSMENT/PLAN: 42 yo F with PMHx hypertriglyceridemia, asthma, panic attack, depression and PUD (h pylori A/B-day 10) now presenting with recurrent epigastric pain and nausea and found to have cholelithiasis Biliary cholic: Recurrent epigastric pain Elevated liver enzymes Gall stones Hx of elevated TGs- to obtain outpx documentation for levels, if possible Iv ketorolac 15mg Q6H (pain 7-10) Iv normal saline @100/hr NPO GI consult- Dr Caputo MRCP Hepatitis panel EKG Type and screen PT/PTT CBC, CMP Zofran 4mg Q6H Iv protonix 40mg daily PUD: Continue clarithromycin 500mg bid PO x4 days Amox 500mg bid PO x 4 days Iv protonix 40mg daily Panic attack/depression: Recent episodes precipitated by major life events Not on medication Monitor asthma: Not in exacerbation Monitor FEN: Iv normal saline @100/hr Monitor lytes and replete as needed NPO PPx: SCDs, early ambulation Hold heparin for now- for likely procedures Dispo: Med surg Visit type - Emergency Visit Emergency Visit: Yes ED Registration Date: 10/30/17 Care time: The patient presented to the Emergency Department on the above date and was hospitalized for further evaluation of their emergent condition. - New Patient This patient is new to me today: Yes Date on this admission: 10/30/17 - Critical Care Critical Care patient: No
[2017-10-30] MEDS ORDERED: SODIUM CHLORIDE 1,000 ML IV SCH (03:30)
[2017-10-30] MEDS ORDERED: KETOROLAC TROMETHAMINE 15 MG/ML VIAL IVPUSH PRN (03:30)
[2017-10-30] MEDS ORDERED: ONDANSETRON 4 MG/2 ML VIAL IVPUSH PRN (03:44)
--- NOTE | 2017-10-30 08:33 | HOSP ---
Subjective - Review of Symptoms Events since last encounter: Patient is feeling better, less abdominal pain today. Patient had a similar episode in August. Vital Signs Temperature 98.9 F 10/30/17 07:04 Pulse Rate 98 H 10/30/17 07:04 Respiratory Rate 14 10/30/17 07:04 Blood Pressure 127/61 10/30/17 07:04 O2 Sat by Pulse Oximetry (%) 99 10/30/17 07:04 GENERAL: Awake, alert, and fully oriented, in no acute distress. HEAD: Normal with no signs of trauma. EYES: Pupils equal, round and reactive to light, extraocular movements intact, sclera anicteric, conjunctiva clear. EARS, NOSE, THROAT: oropharynx clear without exudates. Moist mucous membranes. NECK: Normal range of motion, supple LUNGS: Breath sounds equal, clear to auscultation bilaterally. No wheezes, and no crackles. HEART: mild tachycardia, S1 and S2 without murmur, rub or gallop. ABDOMEN: Soft, mild midepigastric tenderness, No rebound , not distended, normoactive bowel sounds, no guarding, no masses appreciated. MUSCULOSKELETAL: Normal range of motion at all joints. No bony deformities or tenderness. No CVA tenderness. EXTREMITIES: 2+ pulses, warm, well-perfused. No cyanosis. No clubbing. No peripheral edema. NEUROLOGICAL: Cranial nerves II-XII intact. Normal speech. Gait not observed PSYCHIATRIC: Cooperative. Good eye contact. Appropriate mood and affect. CBCD WBC 10.6 K/mm3 (4.0-10.0) H 10/29/17 23:44 RBC 4.67 M/mm3 (3.60-5.2) 10/29/17 23:44 Hgb 13.9 GM/dL (10.7-15.3) 10/29/17 23:44 Hct 41.0 % (32.4-45.2) 10/29/17 23:44 MCV 87.7 fl (80-96) 10/29/17 23:44 MCHC 34.0 g/dl (32.0-36.0) 10/29/17 23:44 RDW 12.8 % (11.6-15.6) 10/29/17 23:44 Plt Count 193 K/MM3 (134-434) D 10/29/17 23:44 MPV 9.6 fl (7.5-11.1) 10/29/17 23:44 CMP Sodium 140 mmol/L (136-145) 10/29/17 23:44 Potassium 4.2 mmol/L (3.5-5.1) 10/29/17 23:44 Chloride 104 mmol/L (98-107) 10/29/17 23:44 Carbon Dioxide 29 mmol/L (21-32) 10/29/17 23:44 Anion Gap 7 (8-16) L 10/29/17 23:44 BUN 10 mg/dL (7-18) 10/29/17 23:44 Creatinine 0.8 mg/dL (0.55-1.02) 10/29/17 23:44 Creat Clearance w eGFR > 60 (>60) 10/29/17 23:44 Random Glucose 140 mg/dL (74-106) H 10/29/17 23:44 Calcium 8.4 mg/dL (8.5-10.1) L 10/29/17 23:44 Total Bilirubin 0.4 mg/dL (0.2-1.0) D 10/29/17 23:44 AST 507 U/L (15-37) H 10/29/17 23:44 ALT 331 U/L (12-78) H 10/29/17 23:44 Alkaline Phosphatase 252 U/L (45-117) H 10/29/17 23:44 Total Protein 7.3 g/dl (6.4-8.2) 10/29/17 23:44 Albumin 3.6 g/dl (3.4-5.0) 10/29/17 23:44 Current Medications Generic Name Dose Route Start Last Admin Trade Name Freq PRN Reason Stop Dose Admin Amoxicillin 500 mg 10/30/17 10:00 Amoxicillin - PO BID IZABELLA Clarithromycin 500 mg 10/30/17 10:00 Biaxin - PO BID IZABELLA Sodium Chloride 1,000 mls @ 100 mls/hr 10/30/17 03:30 10/30/17 03:30 Normal Saline - IV 100 mls/hr ASDIR IZABELLA Administration Ondansetron HCl 4 mg 10/30/17 03:44 Zofran Injection IVPUSH Q6H PRN NAUSEA Pantoprazole Sodium 40 mg 10/30/17 10:00 Protonix Iv IVPUSH DAILY [facility] Home Medications Medication Instructions Recorded Albuterol 0.083% Nebulizer Dahlia 1 neb NEB Q6H #30 vial 08/16/17 [Ventolin 0.083% Nebulizer Soln -] Amoxicillin - [Amoxicillin 500mg 500 mg PO BID 10/29/17 Capsule -] Clarithromycin [Biaxin -] 500 mg PO BID 10/29/17 Famotidine [Pepcid -] 20 mg PO BID 10/29/17 Lansoprazole [Prevacid] 30 mg PO BID 10/29/17 Abd US: Liver mildly fatty. Gallbladder with tiny stones. CBD NOT dilated, no signs of choleycystitis ASSESSMENT/PLAN: 42 yo F with PMHx hypertriglyceridemia, asthma, panic attack, depression and PUD (h pylori A/B-day 10) now presenting with recurrent epigastric pain and nausea and found to have cholelithiasis # Acute Biliary cholic with tiny gallstones with Elevated LFTs siria hold Amoxicillin and Claritromycin since can irritate the stomach and elevate the enzymes. # acute Transaminitis will monitor , will hold Clarithromycin and amoxicillin since can elevate the LFTs. # Hx of PUD with positive of H pylori as per patient , was found to have positive stool antigen for H pylori, will hold the treatment for now since can cause GI irritation , Hepatotoxiciy. Continue Protonix for now #Hx of Panic attack/depression: on no meds. #Hx of asthma:stable PPx:SCDs, early ambulation IVF and GI pX : Protonix Hold Clarithromycin and amoxicillin Physical Examination Vital Signs: Vital Signs Temperature 98.9 F 10/30/17 07:04 Pulse Rate 98 H 10/30/17 07:04 Respiratory Rate 14 10/30/17 07:04 Blood Pressure 127/61 10/30/17 07:04 O2 Sat by Pulse Oximetry (%) 99 10/30/17 07:04 Labs: CBC, BMP 10/29/17 23:44 10/29/17 23:44
[2017-10-30] MEDS ORDERED: AMOXICILLIN 500 MG CAPSULE (FP) PO SCH (10:00)
[2017-10-30] MEDS ORDERED: PANTOPRAZOLE SODIUM 40 MG VIAL IVPUSH SCH (10:00)
[2017-10-30] MEDS ORDERED: PATIENT'S OWN MEDICATION (NON-FORMULARY) (Lansoprazole [Prevacid] 30 MG) PO SCH (10:00)
[2017-10-30] MEDS ORDERED: CLARITHROMYCIN 500 MG TABLET (UD) PO SCH (10:00)
[2017-10-30] MEDS: PANTOPRAZOLE SODIUM 40 MG VIAL IVPUSH SCH (10:23)
[2017-10-30 15:15] VITALS: BMI 33.3
[2017-10-30] MEDS ORDERED: ALPRAZolam 0.25 MG TABLET PO ONE (20:35)
--- NOTE | 2017-10-30 20:40 | CON.GI ---
Consult Consult Specialty:: Gastroenterology Referred by:: hospitalist - History of Present Illness History of Present Illness: 42 y/o F was admitted last [facility] for further evaluation and management of ruq quadrant pain. For the past months she had 4 episodes severe epigastric pain which lasted for 20min. She was being treated for H.pylori. Yesterday had similar pain, again 10/10 associated with severe elevation of her liver enzymes. For the past 16 hours she was pain free. Abdominal ultrasound revealed cholelithiasis and normal CBD - History Source History Provided By: Patient - Past Medical History ...LMP: 10/07/17 - Past Surgical History Past Surgical History: Yes: None - Alcohol/Substance Use Hx Alcohol Use: No History of Substance Use: reports: None - Smoking History Smoking history: Never smoked Have you smoked in the past 12 months: No Aproximately how many cigarettes per day: 0 - Social History Usual Living Arrangement: With Spouse History of Recent Travel: No Home Medications - Allergies Allergies/Adverse Reactions: Allergies Allergy/AdvReac Type Severity Reaction Status Date / Time No Known Allergies Allergy Verified 10/29/17 21:17 - Home Medications Home Medications: Ambulatory Orders Albuterol 0.083% Nebulizer Dahlia [Ventolin 0.083% Nebulizer Soln -] 1 neb NEB Q6H #30 vial 08/16/17 Amoxicillin - [Amoxicillin 500mg Capsule -] 500 mg PO BID 10/29/17 Clarithromycin [Biaxin -] 500 mg PO BID 10/29/17 Famotidine [Pepcid -] 20 mg PO BID 10/29/17 Lansoprazole [Prevacid] 30 mg PO BID 10/29/17 Physical Exam-GI Vital Signs: Vital Signs Temperature 98.3 F 10/30/17 16:33 Pulse Rate 75 10/30/17 16:33 Respiratory Rate 18 10/30/17 16:33 Blood Pressure 135/79 10/30/17 16:33 O2 Sat by Pulse Oximetry (%) 99 10/30/17 15:11 Constitutional: Yes: Well Nourished Eyes: Yes: Conjunctiva Clear HENT: Yes: Atraumatic Neck: Yes: Supple Cardiovascular: Yes: Regular Rate and Rhythm Respiratory: Yes: CTA Bilaterally ...Auscultate: Yes: Normoactive Bowel Sounds Labs: CBC, BMP 10/29/17 23:44 10/29/17 23:44 Problem List - Problems (1) Biliary colic Assessment/Plan: R> surgical consult Code(s): K80.50 - CALCULUS OF BILE DUCT W/O CHOLANGITIS OR CHOLECYST W/O OBST (2) Elevated liver enzymes Assessment/Plan: R> MRCP r/o CBD stone Code(s): R74.8 - ABNORMAL LEVELS OF OTHER SERUM ENZYMES
--- NOTE | 2017-10-30 23:12 | EKG ---
Test Reason : Blood Pressure : / mmHG Vent. Rate : 085 BPM Atrial Rate : 085 BPM P-R Int : 150 ms QRS Dur : 098 ms QT Int : 358 ms P-R-T Axes : 059 009 032 degrees QTc Int : 426 ms NORMAL SINUS RHYTHM NORMAL ECG WHEN COMPARED WITH ECG OF 30-OCT-2017 03:50, NO SIGNIFICANT CHANGE WAS FOUND Confirmed by CHRISTOPHER PORTER MD ([id number]) on 10/30/2017 11:12:41 PM Referred By: Yanely LUCIA Confirmed By:CHRISTOPHER PORTER MD
--- NOTE | 2017-10-30 23:16 | EKG ---
Test Reason : Blood Pressure : / mmHG Vent. Rate : 099 BPM Atrial Rate : 099 BPM P-R Int : 150 ms QRS Dur : 106 ms QT Int : 352 ms P-R-T Axes : 057 005 035 degrees QTc Int : 451 ms NORMAL SINUS RHYTHM INCOMPLETE RIGHT BUNDLE BRANCH BLOCK ABNORMAL ECG WHEN COMPARED WITH ECG OF 16-JUL-2017 23:45, VENT. RATE HAS INCREASED Confirmed by CHRISTOPHER PORTER MD ([id number]) on 10/30/2017 11:16:42 PM Referred By: Confirmed By:CHRISTOPHER PORTER MD
[2017-10-31 07:37] LABS: BASO % 0.4 % (0-2.0); EOS % 4.7 % (0-4.5); HEMATOCRIT 40.4 % (32.4-45.2); HEMOGLOBIN 13.2 GM/dL (10.7-15.3); LYMPH % 49.5 % (8-40); MCH 29.3 pg (25.7-33.7); MCHC 32.7 g/dl (32.0-36.0); MEAN CELL VOLUME 89.7 fl (80-96); MEAN PLT VOLUME 9.5 fl (7.5-11.1); NEUT % 36.4 % (42.8-82.8); PLATELET COUNT 176 K/MM3 (134-434); RDW 12.7 % (11.6-15.6); WHITE BLOOD COUNT 5.1 K/mm3 (4.0-10.0)
[2017-10-31 07:43] LABS: INR 1.06 (0.82-1.09)
[2017-10-31 07:45] LABS: ACTIVATED PTT 27.4 SECONDS (26.9-34.4)
[2017-10-31 07:54] LABS: ALBUMIN 3.1 g/dl (3.4-5.0); ANION GAP 6 (8-16); BLOOD UREA NITROGEN 8 mg/dL (7-18); CALCIUM 8.3 mg/dL (8.5-10.1); CHLORIDE 107 mmol/L (98-107); CO2 29 mmol/L (21-32); POTASSIUM 4.1 mmol/L (3.5-5.1); SODIUM 142 mmol/L (136-145)
[2017-10-31 08:00] LABS: ALK PHOS 187 U/L (45-117); BILIRUBIN,TOTAL 0.6 mg/dL (0.2-1.0); CREATININE 0.5 mg/dL (0.55-1.02); GLUCOSE,RANDOM 90 mg/dL (74-106); PHOSPHOROUS 2.8 mg/dL (2.5-4.9); SGOT/AST 156 U/L (15-37); TOT PROT 6.2 g/dl (6.4-8.2)
[2017-10-31 08:06] LABS: SGPT/ALT 456 U/L (12-78)
--- NOTE | 2017-10-31 09:30 | CONSULT ---
- Consultation REQUESTING PROVIDER: Lantin CONSULT REQUEST: We have been asked to surgically evaluate this patient for ( specify). PCP:Tika Sahni HISTORY OF PRESENT ILLNESS: 42 y/o female presented w/post prandial RUQ adominal pain and n/v after eating fatty food; she had this once recently; it resolved spontaneously; an US done a few years ago was neg for GB disease; she is currently being txed for H. pylorii; she denies any other GI//[employer] c/o. PMHx: hyperlipidemia; ? asthma ? PSHx: C-S Home Medications Medication Instructions Recorded Albuterol 0.083% Nebulizer Dahlia 1 neb NEB Q6H #30 vial 08/16/17 [Ventolin 0.083% Nebulizer Soln -] Amoxicillin - [Amoxicillin 500mg 500 mg PO BID 10/29/17 Capsule -] Clarithromycin [Biaxin -] 500 mg PO BID 10/29/17 Famotidine [Pepcid -] 20 mg PO BID 10/29/17 Lansoprazole [Prevacid] 30 mg PO BID 10/29/17 Allergies Allergy/AdvReac Type Severity Reaction Status Date / Time No Known Allergies Allergy Verified 10/29/17 21:17 PHYSICAL EXAM: GENERAL: Awake, alert, and fully oriented, in no acute distress. HEAD: Normal with no signs of trauma. EYES: sclera anicteric, conjunctiva clear. NECK: Normal ROM, supple without lymphadenopathy, JVD, or masses. ABDOMEN: Soft, nontender, not distended, normoactive bowel sounds, no guarding, no rebound, no masses. No organomegaly. No hernias MUSCULOSKELETAL: Normal ROM at all joints. No bony deformities or tenderness. No CVA tenderness. UPPER EXTREMITIES: 2+ pulses, warm, well-perfused. No cyanosis. Cap refill <2 seconds. No peripheral edema. LOWER EXTREMITIES: 2+ pulses, warm, well-perfused. No calf tenderness. No peripheral edema. NEUROLOGICAL: Normal speech, gait not observed. PSYCH: Cooperative. Good eye contact. Appropriate mood and affect. SKIN: Warm, dry, normal turgor, no rashes or lesions noted. Vital Signs Temperature 97.8 F 10/31/17 05:54 Pulse Rate 61 10/31/17 05:54 Respiratory Rate 20 10/31/17 05:54 Blood Pressure 107/70 02/20/18 05:54 O2 Sat by Pulse Oximetry (%) 98 10/31/17 05:00 Lab Results WBC 5.1 K/mm3 (4.0-10.0) D 10/31/17 06:00 RBC 4.50 M/mm3 (3.60-5.2) 10/31/17 06:00 Hgb 13.2 GM/dL (10.7-15.3) 10/31/17 06:00 Hct 40.4 % (32.4-45.2) 10/31/17 06:00 MCV 89.7 fl (80-96) 10/31/17 06:00 MCHC 32.7 g/dl (32.0-36.0) 10/31/17 06:00 RDW 12.7 % (11.6-15.6) 10/31/17 06:00 Plt Count 176 K/MM3 (134-434) 10/31/17 06:00 Sodium 142 mmol/L (136-145) 10/31/17 06:00 Potassium 4.1 mmol/L (3.5-5.1) 10/31/17 06:00 Chloride 107 mmol/L (98-107) 10/31/17 06:00 Carbon Dioxide 29 mmol/L (21-32) 10/31/17 06:00 Anion Gap 6 (8-16) L 10/31/17 06:00 BUN 8 mg/dL (7-18) 10/31/17 06:00 Creatinine 0.5 mg/dL (0.55-1.02) L 10/31/17 06:00 Random Glucose 90 mg/dL (74-106) 10/31/17 06:00 Calcium 8.3 mg/dL (8.5-10.1) L 10/31/17 06:00 Blood Type O POSITIVE 10/31/17 06:00 INR 1.06 (0.82-1.09) 10/31/17 06:00 w/u to date reviewed IMP: cholelithiasis; r/o choledocholithiasis PLAN: NPO/IVF/IVAB's/MRCP and if negative for lap hui; trend LFT's and bilirubin. Will f/u; d/w the patient. Gary Gee MD FACS Visit type - Case Type Case Type: ED Admission - Emergency Emergency Visit: Yes ED Registration Date: 10/30/17 Care time: The patient presented to the Emergency Department on the above date and was hospitalized for further evaluation of their emergent condition. - New patient This patient is new to me today: Yes Date on this admission: 10/31/17 - Critical Care Critical Care patient: No
[2017-10-31] MEDS: PANTOPRAZOLE SODIUM 40 MG VIAL IVPUSH SCH (09:47)
--- NOTE | 2017-10-31 13:27 | PN ---
Physical Exam: SUBJECTIVE: Patient seen and examined at bedside. denies any abdominal pain , N/ V/D/C. denies any fever, chills. OBJECTIVE: Vital Signs Period Temp Pulse Resp BP Sys/Iqbal Pulse Ox Last 24 Hr 97.8 F-98.5 F 61-75 18-20 107-135/68-79 97-100 GENERAL: AAOx3 in NAD HEAD: NC/AT EYES: EOMI, Conjunctiva clear, sclera anicteric ENT: moist mucous membrane NECK: Supple, no JVD LUNGS: CTA B/L, no crackles no wheezing no accessory muscle use. HEART: RRR, NSR, normal s1, s2, murmur no M/R/G ABDOMEN: Soft, ND, NT, +BS 4 Q, no CVA Tenderness LOWER EXTREMITIES: no edema, +2DP pulse, NEUROLOGICAL: No focal deficit. Normal speech. gait not observed. PSYCHIATRIC: Cooperative. Good eye contact. Appropriate mood and affect. SKIN: Warm, dry, Laboratory Results - last 24 hr 10/30/17 10/31/17 10/31/17 06:00 06:00 06:00 WBC 5.1 D RBC 4.50 Hgb 13.2 Hct 40.4 MCV 89.7 MCH 29.3 MCHC 32.7 RDW 12.7 Plt Count 176 MPV 9.5 Neutrophils % 36.4 L D Lymphocytes % 49.5 H D Monocytes % 9.0 Eosinophils % 4.7 H D Basophils % 0.4 PT with INR 12.00 H INR 1.06 PTT (Actin FS) 27.4 Sodium Potassium Chloride Carbon Dioxide Anion Gap BUN Creatinine Creat Clearance w eGFR Random Glucose Calcium Phosphorus Total Bilirubin AST ALT Alkaline Phosphatase Total Protein Albumin Hepatitis C Antibody 0.1 Blood Type Antibody Screen Prewarmed Antibody Srcn Antibody Identification Antigen Identification 10/31/17 10/31/17 06:00 06:00 WBC RBC Hgb Hct MCV MCH MCHC RDW Plt Count MPV Neutrophils % Lymphocytes % Monocytes % Eosinophils % Basophils % PT with INR INR PTT (Actin FS) Sodium 142 Potassium 4.1 Chloride 107 Carbon Dioxide 29 Anion Gap 6 L BUN 8 Creatinine 0.5 L Creat Clearance w eGFR > 60 Random Glucose 90 Calcium 8.3 L Phosphorus 2.8 Total Bilirubin 0.6 D AST 156 H ALT 456 H Alkaline Phosphatase 187 H Total Protein 6.2 L Albumin 3.1 L Hepatitis C Antibody Blood Type O POSITIVE Antibody Screen Positive H Prewarmed Antibody Srcn Negative Antibody Identification No Result Required. Antigen Identification No Result Required. Active Medications Generic Name Dose Route Start Last Admin Trade Name Rashid PRN Reason Stop Dose Admin Sodium Chloride 1,000 mls @ 100 mls/hr 10/30/17 03:30 10/30/17 03:30 Normal Saline - IV 100 mls/hr ASDIR IZABELLA Administration Pantoprazole Sodium 40 mg 10/30/17 10:00 10/31/17 09:47 Protonix Iv IVPUSH 40 mg DAILY IZABELLA Administration CBC, BMP 10/31/17 06:00 10/31/17 06:00 ASSESSMENT/PLAN: 42 yo F with PMHx hypertriglyceridemia, asthma, panic attack, depression and PUD (h pylori A/B-day 10) now presenting with recurrent epigastric pain and nausea and found to have cholelithiasis #Biliary cholic: Recurrent epigastric pain Elevated liver enzymes Gall stones Hx of elevated TGs- to obtain outpx documentation for levels, if possible Iv ketorolac 15mg Q6H (pain 7-10) Iv normal saline @100/hr NPO GI consult- Dr Caputo MRCP Hepatitis panel EKG Type and screen PT/PTT CBC, CMP Zofran 4mg Q6H Iv protonix 40mg daily * Surgery consulted ,possible lab hui ectomy tomorrow if ERCP is negative. #PUD: Continue clarithromycin 500mg bid PO x4 days Amox 500mg bid PO x 4 days Iv protonix 40mg daily #Panic attack/depression: Recent episodes precipitated by major life events Not on medication Monitor #asthma: Not in exacerbation Monitor #FEN: Iv normal saline @100/hr Monitor lytes and replete as needed NPO #PPx: SCDs, early ambulation Hold heparin for now- for likely procedures #Dispo: Med surg
[2017-10-31 14:54] VITALS: BP 119/72; PULSE 62; TEMP 98.6
--- NOTE | 2017-10-31 15:51 | DS ---
Physical Exam: SUBJECTIVE: Patient seen and examined at bedside. denies any abdominal pain , N/ V/D/C. denies any fever, chills. OBJECTIVE: Vital Signs Period Temp Pulse Resp BP Sys/Iqbal Pulse Ox Last 24 Hr 97.8 F-98.6 F 61-75 18-20 107-135/68-79 97-100 PHYSICAL EXAM GENERAL: AAOx3 in NAD HEAD: NC/AT EYES: EOMI, Conjunctiva clear, sclera anicteric ENT: moist mucous membrane NECK: Supple, no JVD LUNGS: CTA B/L, no crackles no wheezing no accessory muscle use. HEART: RRR, NSR, normal s1, s2, murmur no M/R/G ABDOMEN: Soft, ND, NT, +BS 4 Q, no CVA Tenderness LOWER EXTREMITIES: no edema, +2DP pulse, NEUROLOGICAL: No focal deficit. Normal speech. gait not observed. PSYCHIATRIC: Cooperative. Good eye contact. Appropriate mood and affect. SKIN: Warm, dry, LABS Laboratory Results - last 24 hr 10/30/17 10/31/17 10/31/17 06:00 06:00 06:00 WBC 5.1 D RBC 4.50 Hgb 13.2 Hct 40.4 MCV 89.7 MCH 29.3 MCHC 32.7 RDW 12.7 Plt Count 176 MPV 9.5 Neutrophils % 36.4 L D Lymphocytes % 49.5 H D Monocytes % 9.0 Eosinophils % 4.7 H D Basophils % 0.4 PT with INR 12.00 H INR 1.06 PTT (Actin FS) 27.4 Sodium Potassium Chloride Carbon Dioxide Anion Gap BUN Creatinine Creat Clearance w eGFR Random Glucose Calcium Phosphorus Total Bilirubin AST ALT Alkaline Phosphatase Total Protein Albumin Hepatitis C Antibody 0.1 Blood Type Antibody Screen Prewarmed Antibody Srcn Antibody Identification Antigen Identification 10/31/17 10/31/17 06:00 06:00 WBC RBC Hgb Hct MCV MCH MCHC RDW Plt Count MPV Neutrophils % Lymphocytes % Monocytes % Eosinophils % Basophils % PT with INR INR PTT (Actin FS) Sodium 142 Potassium 4.1 Chloride 107 Carbon Dioxide 29 Anion Gap 6 L BUN 8 Creatinine 0.5 L Creat Clearance w eGFR > 60 Random Glucose 90 Calcium 8.3 L Phosphorus 2.8 Total Bilirubin 0.6 D AST 156 H ALT 456 H Alkaline Phosphatase 187 H Total Protein 6.2 L Albumin 3.1 L Hepatitis C Antibody Blood Type O POSITIVE Antibody Screen Positive H Prewarmed Antibody Srcn Negative Antibody Identification No Result Required. Antigen Identification No Result Required. HOSPITAL COURSE: Date of Admission:10/30/17 Date of Discharge: 10/31/17 is a 42 yo F with PMHx hypertriglyceridemia, asthma, panic attack, depression and PUD (h pylori A/B-day 10) presented with recurrent epigastric pain and nausea and found to have cholelithiasis. was treated with Iv ketorolac 15mg Q6H (pain 7-10),Iv normal saline @100/hr, maded her NPO,GI was consult- Dr Caputo and Dr Gee surgery for possible Cholecyctectomy. she will follow up with surgeon and GI as out pt. for PUD Continue clarithromycin 500mg bid PO x4 days,Amox 500mg bid PO x 4 days , protonix 40mg daily for Panic attack/depression:not on any meds.pt is stable ad the pain has resolved. she will follow up as out pt.she will on liquid diet till the surgery day. Minutes to complete discharge: 40 <Liam Brooks - Last Filed: 10/31/17 17:26> Physical Exam: Patient is seen and examined : patient is being discharged home since her LFTs are improving, will follow with in am in the office. Has an appointment in am, and surgery will be scheduled on . Patient has no pain at this time. Correction: will discontinue Her Clarithromycin and Amoxicillin for now since can elevate the Liver enzymes. Can follow with as an outpatient for further treatment later once everything is stabilized. <Tika Sahni - Last Filed: 10/31/17 19:10> Discharge Summary Reason For Visit: STEATOSIS OF LIVER,ELEVATED LIVER ENZYMES,ABDOM- Current Active Problems Elevated liver enzymes (Chronic) Fatty liver (Chronic) - Home Medications Comprehensive Discharge Medication List: Ambulatory Orders Albuterol 0.083% Nebulizer Dahlia [Ventolin 0.083% Nebulizer Soln -] 1 neb NEB Q6H #30 vial 08/16/17 Famotidine [Pepcid -] 20 mg PO BID 10/29/17 Lansoprazole [Prevacid] 30 mg PO BID 10/29/17 Amoxicillin - [Amoxicillin 500mg Capsule -] 500 mg PO BID capsule 10/31/17 Clarithromycin [Biaxin -] 500 mg PO BID tablet 10/31/17 <Liam Brooks - Last Filed: 10/31/17 17:26> - Home Medications Comprehensive Discharge Medication List: Ambulatory Orders RX: Albuterol 0.083% Nebulizer Dahlia [Ventolin 0.083% Nebulizer Soln -] 1 neb NEB Q6H #30 vial 08/16/17 RX: Famotidine [Pepcid -] 20 mg PO BID 10/29/17 RX: Lansoprazole [Prevacid] 30 mg PO BID 10/29/17 <Tika Sahni - Last Filed: 10/31/17 19:10> - Instructions Diet, Activity, Other Instructions: You presented to the hospital with abdominal pain. Based on your blood work and imaging, the pain is due to your gallbladder, which contains gall stones. Since you are now better, you can go home but it is very important for you to have a surgery to remove the gallbladder as soon as possible because the pain will likely recur and can be dangerous and even life threatening. *Please follow up with Dr Gee tomorrow 11/01/2017, your appointment is at 9am at [address] Gee will schedule your gall bladder removal surgery (cholecystectomy) for late this week/early next week *Follow up with oncology patient navigator Dr Caputo within an one week and your primary doctor in 2 weeks. *Hold clarithromycin 500mg twice a day, Amoxicillin 500 mg twice a day and privacid for 3 more days. While you are awaiting surgery, drink plenty of fluids and avoid fatty foods, try to ear liquid foods only like soup and yogurt. Return to the ER if symptoms worsen. Referrals: Babak Caputo MD [Staff Physician] - 1 Week Megan Tsang [Non Staff, Medical] - 2 Weeks Gary Gee MD [Staff Physician] - 11/01/17 Disposition: HOME This patient is new to me today: Yes Date on this admission: 10/31/17 Emergency Visit: Yes ED Registration Date: 10/30/17 Care time: The patient presented to the Emergency Department on the above date and was hospitalized for further evaluation of their emergent condition. Critical Care patient: No - Discharge Referral Referred to [facility] Med P.C.: No <Liam Brooks - Last Filed: 10/31/17 17:26>
[2017-11-03 00:06] LABS: HBSAG SCREEN Negative (Negative); HEP A AB, IGM Negative (Negative); HEP B CORE AB, TOT Negative (Negative)
== END 2017-10-31 17:16 | disposition home or self-care (01) ==
LOC: JER 20:55 → JERBED 10-30 02:12 → OBSVTOIN 10-30 03:30 → JERBED 10-30 08:37 → J7W 10-30 16:16
PROVIDERS: ADMIT Internal Medicine; ATTEND Internal Medicine
DX: K80.50 Calculus of bile duct without cholangitis or cholecystitis without obstruction (principal); K27.9 Peptic ulcer, site unspecified, unspecified as acute or chronic, without hemorrhage or perforation; F32.9 Major depressive disorder, single episode, unspecified; F41.0 Panic disorder [episodic paroxysmal anxiety]; J45.909 Unspecified asthma, uncomplicated; K76.0 Fatty (change of) liver, not elsewhere classified; R74.0 Nonspecific elevation of levels of transaminase and lactic acid dehydrogenase [LDH]; R74.8 Abnormal levels of other serum enzymes; R10.11 Right upper quadrant pain; E78.1 Pure hyperglyceridemia; B96.81 Helicobacter pylori [H. pylori] as the cause of diseases classified elsewhere
CPT/HCPCS: 36415; 76705-TC; 80053; 81003; 81015; 83690; 84100; 84703; 85025; 85610; 85730; 86704; 86706; 86708; 86803; 86850; 86870; 86900; 86901; 86902; 87340; 93005; 93010; 99284-25; G0378

== ENCOUNTER 2017-12-26 22:13 | Inpatient (IN) | payer OTHER ==
[2017-12-26 22:52] LABS: BASO % 0.4 % (0-2.0); EOS % 2.1 % (0-4.5); HEMATOCRIT 39.9 % (32.4-45.2); HEMOGLOBIN 13.8 GM/dL (10.7-15.3); LYMPH % 41.6 % (8-40); MCH 30.4 pg (25.7-33.7); MCHC 34.5 g/dl (32.0-36.0); MEAN CELL VOLUME 88.1 fl (80-96); MEAN PLT VOLUME 10.1 fl (7.5-11.1); MONO % 6.8 % (3.8-10.2); NEUT % 49.1 % (42.8-82.8); PLATELET COUNT 187 K/MM3 (134-434); RBC 4.53 M/mm3 (3.60-5.2); RDW 13.1 % (11.6-15.6); WHITE BLOOD COUNT 8.2 K/mm3 (4.0-10.0)
[2017-12-26 23:05] LABS: INR 1.06 (0.82-1.09)
[2017-12-26] MEDS ORDERED: SODIUM CHLORIDE 1,000 ML IV STA (23:24)
[2017-12-26] MEDS ORDERED: ONDANSETRON 4 MG/2 ML VIAL IVPUSH ONE (23:25)
[2017-12-26] MEDS ORDERED: HYDROmorphone HCL CARPU-JECT 1 MG/1 ML DISP.SYRIN IVPB ONE (23:25)
[2017-12-26] MEDS ORDERED: ONDANSETRON 4 MG/2 ML VIAL ONE (23:28)
[2017-12-26 23:34] LABS: ALBUMIN 3.8 g/dl (3.4-5.0); ALK PHOS 156 U/L (45-117); AMYLASE 97 U/L (25-115); ANION GAP 9 (8-16); BILIRUBIN,TOTAL 0.5 mg/dL (0.2-1.0); BLOOD UREA NITROGEN 16 mg/dL (7-18); CALCIUM 9.2 mg/dL (8.5-10.1); CHLORIDE 103 mmol/L (98-107); CO2 27 mmol/L (21-32); CREATININE 0.8 mg/dL (0.55-1.02); GLUCOSE,RANDOM 114 mg/dL (74-106); LIPASE 181 U/L (73-393); POTASSIUM 3.9 mmol/L (3.5-5.1); SGOT/AST 145 U/L (15-37); SGPT/ALT 107 U/L (12-78); SODIUM 139 mmol/L (136-145); TOT PROT 7.4 g/dl (6.4-8.2)
[2017-12-26] MEDS ORDERED: morphine SULFATE 4 MG/ML VIAL IVPUSH STA (23:36)
[2017-12-26] MEDS ORDERED: morphine SULFATE 4 MG/ML VIAL ONE (23:37)
--- NOTE | 2017-12-26 23:37 | PDOC ---
History of Present Illness <Yulissa Flores - Last Filed: 12/27/17 01:18> - General History Source: Patient, Family Exam Limitations: No Limitations - History of Present Illness Initial Comments: The patient is a 42 year old female with a significant past medical history of HLD and asthma who presents to the emergency department complaining of right upper quadrant abdominal pain which began an hour ago. The patient reports the the abdominal pain she feels is similar to the same pain as gallbladder stones. The patient reports she was previously admitted for epigastric discomfort and planned to follow up with Dr. Gee on 11/13 for cholecystectomy, but was not contacted for follow-up. The patient reports associated symptoms of nausea and vomiting. The patient denies chest pain, shortness of breath, headache, and dizziness. Denies fevers, chills, diarrhea, constipation, dysuria, frequency, urgency, and hematuria. Allergies: NKA Past surgical history: . Social history: No reported cigarette, alcohol, or drug use. PCP: Dr. Tsang <Lissy East - Last Filed: 12/27/17 01:30> - General Chief Complaint: Pain Stated Complaint: PAIN Time Seen by Provider: 12/26/17 23:03 Past History - Past Medical History Anemia: No Asthma: Yes COPD: No Hypercholesterolemia: Yes Psychiatric Problems: Yes (anxiety, not on meds) - Reproductive History (#): 6 Para: 5 - Immunization History Immunization Up to Date: Yes - Suicide/Smoking/Psychosocial Hx Smoking Status: No Smoking History: Never smoked Have you smoked in the past 12 months: No Number of Cigarettes Smoked Daily: 0 Information on smoking cessation initiated: No Hx Alcohol Use: No Drug/Substance Use Hx: No Substance Use Type: None Hx Substance Use Treatment: No <Yulissa Flores - Last Filed: 12/27/17 01:18> <Lissy East - Last Filed: 12/27/17 01:30> - Past Medical History Allergies/Adverse Reactions: Allergies Allergy/AdvReac Type Severity Reaction Status Date / Time No Known Allergies Allergy Verified 12/26/17 22:19 Home Medications: Ambulatory Orders NK [No Known Home Medication] 12/26/17 Abd/GI Specific PMHX - Complaint Specific PMHX Colitis: No Diverticulitis: No Gall Bladder Disease: No GERD: No Hepatitis: No Irritable Bowel Synd (IBS): No GI Ulcer Disease: No <Yulissa Flores - Last Filed: 12/27/17 01:18> Review of Systems - Review of Systems Able to Perform ROS?: Yes Comments:: CONSTITUTIONAL: Absent: fever, chills, diaphoresis, generalized weakness, malaise, loss of appetite HEENT: Absent: rhinorrhea, nasal congestion, throat pain, throat swelling, difficulty swallowing, mouth swelling, ear pain, eye pain, visual Changes CARDIOVASCULAR: Absent: chest pain, syncope, palpitations, irregular heart rate, lightheadedness , peripheral edema RESPIRATORY: Absent: cough, shortness of breath, dyspnea with exertion, orthopnea, wheezing, stridor, hemoptysis GASTROINTESTINAL: (+)nausea. (+) vomiting. Absent: abdominal pain, abdominal distension, diarrhea, constipation, melena, hematochezia GENITOURINARY: Absent: dysuria, frequency, urgency, hesitancy, hematuria, flank pain, genital pain MUSCULOSKELETAL: (+)RUQ pain. Absent: myalgia, arthralgia, joint swelling SKIN: Absent: rash, itching, pallor HEMATOLOGIC/IMMUNOLOGIC: Absent: easy bleeding, easy bruising, lymphadenopathy, frequent infections ENDOCRINE: Absent: unexplained weight gain, unexplained weight loss, heat intolerance, cold intolerance NEUROLOGIC: Absent: headache, focal weakness or paresthesias, dizziness, unsteady gait, seizure, mental status changes, bladder or bowel incontinence PSYCHIATRIC: Absent: anxiety, depression, suicidal or homicidal ideation, hallucinations. <Lissy East - Last Filed: 12/27/17 01:30> *Physical Exam - Vital Signs Last Vital Signs Temp Pulse Resp BP Pulse Ox 97.8 F 89 20 132/79 100 12/26/17 22:20 12/26/17 22:20 12/26/17 22:20 12/26/17 22:20 12/26/17 22:20 <Yulissa Flores - Last Filed: 12/27/17 01:18> - Vital Signs Last Vital Signs Temp Pulse Resp BP Pulse Ox 97.8 F 89 20 132/79 100 12/26/17 22:20 12/26/17 22:20 12/26/17 22:20 12/26/17 22:20 12/26/17 22:20 - Physical Exam Comments: GENERAL: (+)Mild distress. Well developed, well nourished. Awake and alert. HEENT: Normocephalic, atraumatic. PERRLA, EOMI. No conjunctival pallor. Sclera are non- icteric. NECK: Supple. Full ROM. No JVD. Carotid pulses 2+ and symmetric, without bruits. No thyromegaly. No lymphadenopathy. CARDIOVASCULAR: Regular rate and rhythm. No murmurs, rubs, or gallops. Distal pulses are 2+ and symmetric. PULMONARY: No evidence of respiratory distress. Lungs clear to auscultation bilaterally. No wheezing, rales or rhonchi. ABDOMINAL: (+)Severe epigastric pain. (+)RUQ pain, tender. Non-distended. No rebound or guarding. No organomegaly. Normoactive bowel sounds. MUSCULOSKELETAL Normal range of motion at all joints. No bony deformities or tenderness. No CVA tenderness. EXTREMITIES: No cyanosis. No clubbing. No edema. No calf tenderness. SKIN: Warm and dry. Normal capillary refill. No rashes. No jaundice. NEUROLOGICAL: Alert, awake, appropriate. Cranial nerves 2-12 intact. No deficits to light touch and temperature in face, upper extremities and lower extremities. No motor deficits in the in face, upper extremities and lower extremities. Normoreflexic in the upper and lower extremities. Normal speech. Toes are down- going bilaterally. PSYCHIATRIC: Cooperative. Good eye contact. Appropriate mood and affect. <Lissy East - Last Filed: 12/27/17 01:30> ED Treatment Course - LABORATORY CBC & Chemistry Diagram: 12/26/17 22:45 12/26/17 22:45 - ADDITIONAL ORDERS Additional order review: Laboratory Results 12/26/17 12/26/17 22:45 22:45 PT with INR 12.00 H INR 1.06 Serum , Qual Negative 12/26/17 22:45 RBC 4.53 MCV 88.1 MCHC 34.5 RDW 13.1 MPV 10.1 Neutrophils % 49.1 D Lymphocytes % 41.6 H Monocytes % 6.8 Eosinophils % 2.1 Basophils % 0.4 - Medications Given in the ED: ED Medications Discontinued Medications Generic Name Dose Route Start Last Admin Trade Name Freq PRN Reason Stop Dose Admin Ondansetron HCl 4 mg 12/26/17 23:25 12/26/17 23:32 Zofran Injection IVPUSH 12/26/17 23:26 4 mg ONCE ONE Administration <Yulissa Flores - Last Filed: 12/27/17 01:18> - LABORATORY CBC & Chemistry Diagram: 12/26/17 22:45 12/26/17 22:45 - ADDITIONAL ORDERS Additional order review: Laboratory Results 12/26/17 12/26/17 12/26/17 22:45 22:45 22:45 PT with INR 12.00 H INR 1.06 Sodium 139 Potassium 3.9 Chloride 103 Carbon Dioxide 27 Anion Gap 9 BUN 16 Creatinine 0.8 Creat Clearance w eGFR > 60 Random Glucose 114 H Calcium 9.2 Total Bilirubin 0.5 AST 145 H ALT 107 H Alkaline Phosphatase 156 H Total Protein 7.4 Albumin 3.8 Total Amylase 97 Lipase 181 Serum , Qual Negative 12/26/17 22:45 RBC 4.53 MCV 88.1 MCHC 34.5 RDW 13.1 MPV 10.1 Neutrophils % 49.1 D Lymphocytes % 41.6 H Monocytes % 6.8 Eosinophils % 2.1 Basophils % 0.4 - Medications Given in the ED: ED Medications Discontinued Medications Generic Name Dose Route Start Last Admin Trade Name Freq PRN Reason Stop Dose Admin Hydromorphone HCl 0.5 mg 12/26/17 23:25 12/27/17 00:01 Dilaudid Injection - IVPB 12/26/17 23:26 Not Given ONCE ONE Sodium Chloride 1,000 mls @ 1,000 mls/hr 12/26/17 23:24 12/26/17 23:32 Normal Saline - IV 12/27/17 00:23 1,000 mls/hr ASDIR STA Administration Morphine Sulfate 2 mg 12/26/17 23:36 12/27/17 00:01 Morphine Sulfate IVPUSH 12/26/17 23:37 2 mg ONCE STA Administration Ondansetron HCl 4 mg 12/26/17 23:25 12/26/17 23:32 Zofran Injection IVPUSH 12/26/17 23:26 4 mg ONCE ONE Administration <Lissy East - Last Filed: 12/27/17 01:30> *DC/Admit/Observation/Transfer - Discharge Dispostion Admit: Yes <Yulissa Flores - Last Filed: 12/27/17 01:18> - Attestations Scribe Attestion: Documentation prepared by Lissy East, acting as medical aide for Yulissa Flores MD. <Lissy East - Last Filed: 12/27/17 01:30> Diagnosis at time of Disposition: Elevated liver enzymes, Nausea & vomiting, Cholelithiasis - Referrals Referrals: Megan Tsang [Primary Care Provider] - - Patient Instructions - Post Discharge Activity
[2017-12-27] MEDS ORDERED: CEFAZOLIN 1 GM in DEXTROSE 5%-WATER - 50 ML IVPB ONE (01:01)
[2017-12-27] MEDS ORDERED: ceFAZolin SODIUM 1 GM VIAL ONE (01:04)
--- NOTE | 2017-12-27 01:08 | PN ---
Teaching Attending Note Name of Resident: eMrcedes Pollard ATTENDING PHYSICIAN STATEMENT I saw and evaluated the patient. I reviewed the resident's note and discussed the case with the resident. I agree with the resident's findings and plan as documented. SUBJECTIVE: 42 F with Pmhx. of HLD and Asthma, PUD (was on Tx., for H. Pyelori but Clarithto /Amox D/c;d due transaminitis) who presents with right upper quadrant abdominal pain. States pain started 1 hr. prior to arrival. Notes she was recently admitted with abdominal pain and was supposed to follow up with Dr. Gee for a possible choley, which she didnt make the appointment. Also with associated nausea and NBNB emesis. No fevers or chills. No chest pain or pressure. OBJECTIVE: Physical: VS: Vital Signs Period Temp Pulse Resp BP Sys/Iqbal Pulse Ox Last 24 Hr 97.8 F 89 20 132/79 100 GEN: NAD, Resting in bed, AA0X2 HEENT: NCAT, PERRL, Throat without erythema or exudates CARD: RRR S1, S2 RESP: CTAB ABD: BSx4, Non- Distended, + RUQ TTP EXT: - C/C/E CBCD WBC 8.2 K/mm3 (4.0-10.0) D 12/26/17 22:45 RBC 4.53 M/mm3 (3.60-5.2) 12/26/17 22:45 Hgb 13.8 GM/dL (10.7-15.3) 12/26/17 22:45 Hct 39.9 % (32.4-45.2) 12/26/17 22:45 MCV 88.1 fl (80-96) 12/26/17 22:45 MCHC 34.5 g/dl (32.0-36.0) 12/26/17 22:45 RDW 13.1 % (11.6-15.6) 12/26/17 22:45 Plt Count 187 K/MM3 (134-434) 12/26/17 22:45 MPV 10.1 fl (7.5-11.1) 12/26/17 22:45 CMP Sodium 139 mmol/L (136-145) 12/26/17 22:45 Potassium 3.9 mmol/L (3.5-5.1) 12/26/17 22:45 Chloride 103 mmol/L (98-107) 12/26/17 22:45 Carbon Dioxide 27 mmol/L (21-32) 12/26/17 22:45 Anion Gap 9 (8-16) 12/26/17 22:45 BUN 16 mg/dL (7-18) 12/26/17 22:45 Creatinine 0.8 mg/dL (0.55-1.02) 12/26/17 22:45 Creat Clearance w eGFR > 60 (>60) 12/26/17 22:45 Random Glucose 114 mg/dL (74-106) H 12/26/17 22:45 Calcium 9.2 mg/dL (8.5-10.1) 12/26/17 22:45 Total Bilirubin 0.5 mg/dL (0.2-1.0) 12/26/17 22:45 AST 145 U/L (15-37) H 12/26/17 22:45 ALT 107 U/L (12-78) H 12/26/17 22:45 Alkaline Phosphatase 156 U/L (45-117) H 12/26/17 22:45 Total Protein 7.4 g/dl (6.4-8.2) 12/26/17 22:45 Albumin 3.8 g/dl (3.4-5.0) 12/26/17 22:45 EKG: PEnding CXR: pending ABD US: Cholithiasis. CBD wnl. Fatty Liver ASSESSMENT AND PLAN: 42 F with pmhx. of Asthma, HLD, Depression, PUD, Panic attacks who presents with right upper quadrant abd, pain 1.) Biliary Colic/Transaminitis - S/P MRCP on last admit - Sx. Consult for possible Choley - IVF - NPO - Type & Screen - CBC/COags - GI Consult 2.) PUD - S/P Tx as per GI 3.) Ashtma - Nebs prn 4.) HLD - Not on any meds 5.) Dvt Ppx - SCDS Place in Med-Sx
[2017-12-27] MEDS ORDERED: morphine SULFATE 4 MG/ML VIAL IVPUSH PRN (01:57)
--- NOTE | 2017-12-27 02:05 | HP ---
CHIEF COMPLAINT: RUQ Pain HISTORY OF PRESENT ILLNESS: Patient is a 42 yo F with a PMHx of HLD, Asthma, PUD , recent admission for cholelithiasis, presented because of 10/, constant, non -radiating, RUQ pain that started a few hours ago. Patient says breathing aggravates the pain. She says this pain is the same type of pain she had when she was admitted in October for when she was diagnosed with cholelithiasis. Patient was supposed to follow up with Dr. Gee for cholecystectomy after discharge but did not. She also complains of nausea but has not vomited. Patient denies fevers, chills, chest pain, [place], SOB, dysuria, diarrhea, melena. ER course was notable for: (1) RUQ US: Cholelithiasis (2) IV abx: Ancef Recent Travel: n/a PAST MEDICAL HISTORY: per HPI Social History: Smoking: denies Alcohol: denies Drugs: denies Family History: Allergies No Known Allergies Allergy (Verified 12/26/17 22:19) HOME MEDICATIONS: Home Medications Medication Instructions Recorded NK [No Known Home Medication] 12/26/17 REVIEW OF SYSTEMS CONSTITUTIONAL: Absent: fever, chills, diaphoresis, generalized weakness, malaise, loss of appetite, weight change HEENT: Absent: rhinorrhea, nasal congestion CARDIOVASCULAR: Absent: chest pain, syncope, palpitations RESPIRATORY: Absent: cough, shortness of breath GASTROINTESTINAL: abdominal pain, nausea Absent:vomiting, diarrhea, constipation, melena, hematochezia GENITOURINARY: Absent: dysuria, hematuria, flank pain SKIN: Absent: rash, itching, pallor NEUROLOGIC: Absent: headache, dizziness, mental status changes, bladder or bowel incontinence PHYSICAL EXAMINATION Vital Signs - 24 hr 12/26/17 22:20 Temperature 97.8 F Pulse Rate 89 Respiratory 20 Rate Blood Pressure 132/79 O2 Sat by Pulse 100 Oximetry (%) GENERAL: Awake, alert, and fully oriented, in no acute distress. HEAD: Normal with no signs of trauma. EYES: Pupils equal, round and reactive to light, extraocular movements intact, sclera anicteric, conjunctiva clear. No lid lag. EARS, NOSE, THROAT: oropharynx clear without exudates. Moist mucous membranes. NECK: supple without lymphadenopathy, JVD, or masses. LUNGS: Breath sounds equal, clear to auscultation bilaterally. No wheezes, and no crackles. No accessory muscle use. HEART: Regular rate and rhythm, normal S1 and S2 without murmur, rub or gallop. ABDOMEN: obese, +BS, nondistended, RUQ TTP, +[place], no guarding LOWER EXTREMITIES: 2+ pulses, warm, well-perfused. No calf tenderness. No peripheral edema. NEUROLOGICAL: Cranial nerves II-XII intact. Normal speech. Normal gait. SKIN: Warm, dry, normal turgor, no rashes or lesions noted, normal capillary refill. Laboratory Results - last 24 hr 12/26/17 12/26/17 12/26/17 22:45 22:45 22:45 WBC 8.2 D RBC 4.53 Hgb 13.8 Hct 39.9 MCV 88.1 MCH 30.4 MCHC 34.5 RDW 13.1 Plt Count 187 MPV 10.1 Neutrophils % 49.1 D Lymphocytes % 41.6 H Monocytes % 6.8 Eosinophils % 2.1 Basophils % 0.4 PT with INR 12.00 H INR 1.06 Sodium Potassium Chloride Carbon Dioxide Anion Gap BUN Creatinine Creat Clearance w eGFR Random Glucose Calcium Total Bilirubin AST ALT Alkaline Phosphatase Total Protein Albumin Total Amylase Lipase Serum , Qual Negative 12/26/17 22:45 WBC RBC Hgb Hct MCV MCH MCHC RDW Plt Count MPV Neutrophils % Lymphocytes % Monocytes % Eosinophils % Basophils % PT with INR INR Sodium 139 Potassium 3.9 Chloride 103 Carbon Dioxide 27 Anion Gap 9 BUN 16 Creatinine 0.8 Creat Clearance w eGFR > 60 Random Glucose 114 H Calcium 9.2 Total Bilirubin 0.5 AST 145 H ALT 107 H Alkaline Phosphatase 156 H Total Protein 7.4 Albumin 3.8 Total Amylase 97 Lipase 181 Serum , Qual ASSESSMENT/PLAN: 42 yo F with a PMHx of HLD, Asthma, PUD, recent admission for cholelithiasis, presented with abdominal pain and found to have cholelithiasis. #Biliary Colic/Transaminitis -Abdominal U/S: Multiple gallstones, no gallbladder wall thickening or pericholecystic fluid. Normal CBD 4.8mm. Fatty liver. -Surgery consulted for possible Cholecystectomy -1x dose of IV abx: Ancef -NPO -Morphine 2mg q6h PRN for pain control -PT/INR -Type & screen -S/P MRCP on last admit -GI consulted #Asthma -controlled #PPX -Scds Med-surge Visit type - Emergency Visit Emergency Visit: Yes ED Registration Date: 12/27/17 Care time: The patient presented to the Emergency Department on the above date and was hospitalized for further evaluation of their emergent condition. - New Patient This patient is new to me today: Yes Date on this admission: 12/27/17 - Critical Care Critical Care patient: No Hospitalist Screening - Colonoscopy Questionnaire Colonoscopy Questionnaire: Colonoscopy Questionnaire - Patient: 50 - 75 years old and never had a screening colonoscopy: Unknown History of colon or rectal polyps, or CA: Unknown History of IBD, Crohn's disease or UC: Unknown History of abdominal radiation therapy as a child: Unknown - Relative: 1 with colon or rectal CA, or polyps at age 60 or younger: Unknown Colon or rectal CA diagnosed at age 45 or younger: Unknown Multiple relatives with colon or rectal CA: Unknown - Outcome: Screening Result: Negative Screen
[2017-12-27 03:43] VITALS: BMI 31.6
--- NOTE | 2017-12-27 07:41 | CONSULT ---
- Consultation REQUESTING PROVIDER: CONSULT REQUEST: We have been asked to surgically evaluate this patient for Cholelithiasis/ Cholecystitis PCP:Jef Hopkins HISTORY OF PRESENT ILLNESS: The patient is a 42 year old female who presents to the emergency department complaining of right upper quadrant abdominal pain which began last night after eating. The patient reports the the abdominal pain she feels is similar to the symptoms she experienced on her last admission for cholelithiasis on 10/29/17, and was scheduled for follow up with Dr. Gee for cholecystectomy, but she did not follow-up. The patient reports associated symptoms of nausea and vomiting. Of note, the patient was recently treated for H -Pylori but was unable to complete the treatment 10/13 elevated liver enzymes. She follows with a GI doctor but cannot recall who. PMHx: HLD, Asthma, Depression, PUD, Panic attacks , H-pylori PSHx: C-sections Home Medications Medication Instructions Recorded Albuterol 0.083% Nebulizer Dahlia 1 neb NEB ONCE 12/27/17 [Ventolin 0.083% Nebulizer Soln -] Albuterol Sulfate Inhaler - 1 puff IH Q4H 12/27/17 [Ventolin HFA Inhaler -] Allergies Allergy/AdvReac Type Severity Reaction Status Date / Time No Known Allergies Allergy Verified 12/26/17 22:19 REVIEW OF SYSTEMS: CONSTITUTIONAL: Absent: fever, chills, diaphoresis, generalized weakness, malaise, weight change HEENT: Absent: rhinorrhea, nasal congestion CARDIOVASCULAR: Absent: chest pain, syncope, palpitations RESPIRATORY: Absent: cough, shortness of breath GASTROINTESTINAL: abdominal pain, nausea Absent:vomiting, diarrhea, constipation, melena, hematochezia GENITOURINARY: Absent: dysuria, hematuria, flank pain SKIN: Absent: rash, itching, pallor NEUROLOGIC: Absent: headache, dizziness, mental status changes, bladder or bowel incontinence PHYSICAL EXAM: GENERAL: Awake, alert, and fully oriented, in no acute distress. HEAD: Normal with no signs of trauma. EYES: conjunctiva clear. NECK: trachea midline. patient lying in bed LUNGS: unlabored resp on RA. No accessory muscle use. ABDOMEN: Soft, obese, with diffuse tenderness to palpation over right upper and lower quadrant, not distended, no guarding. MUSCULOSKELETAL: moving extremities without limitation UPPER EXTREMITIES: warm, well-perfused. LOWER EXTREMITIES: warm, well-perfused. NEUROLOGICAL: Normal speech, gait not observed. PSYCH: Cooperative. Good eye contact. Appropriate mood and affect. SKIN: Warm, dry, normal turgor, no rashes or lesions noted. Vital Signs Temperature 98.5 F 12/27/17 02:25 Pulse Rate 76 12/27/17 02:25 Respiratory Rate 18 12/27/17 02:25 Blood Pressure 117/61 12/27/17 02:25 O2 Sat by Pulse Oximetry (%) 97 12/27/17 02:25 Lab Results WBC 8.2 K/mm3 (4.0-10.0) D 12/26/17 22:45 RBC 4.53 M/mm3 (3.60-5.2) 12/26/17 22:45 Hgb 13.8 GM/dL (10.7-15.3) 12/26/17 22:45 Hct 39.9 % (32.4-45.2) 12/26/17 22:45 MCV 88.1 fl (80-96) 12/26/17 22:45 MCHC 34.5 g/dl (32.0-36.0) 12/26/17 22:45 RDW 13.1 % (11.6-15.6) 12/26/17 22:45 Plt Count 187 K/MM3 (134-434) 12/26/17 22:45 Sodium 139 mmol/L (136-145) 12/26/17 22:45 Potassium 3.9 mmol/L (3.5-5.1) 12/26/17 22:45 Chloride 103 mmol/L (98-107) 12/26/17 22:45 Carbon Dioxide 27 mmol/L (21-32) 12/26/17 22:45 Anion Gap 9 (8-16) 12/26/17 22:45 BUN 16 mg/dL (7-18) 12/26/17 22:45 Creatinine 0.8 mg/dL (0.55-1.02) 12/26/17 22:45 Random Glucose 114 mg/dL (74-106) H 12/26/17 22:45 Calcium 9.2 mg/dL (8.5-10.1) 12/26/17 22:45 Blood Type O POSITIVE 12/27/17 02:05 Antibody Screen Positive H 12/27/17 02:05 INR 1.06 (0.82-1.09) 12/26/17 22:45 Problem List - Problems (1) Cholelithiasis Assessment/Plan: Cholelithiasis; r/o choledocholithiasis 1) MRCP to evaluate billiary tree- if negative plan for lap hui tomorrow 2) NPO possible for OR tomorrow 3) IVF/ IVABx 4) trend LFT's and Bilirubin evaluation and plan discussed with Dr Gee Code(s): K80.20 - CALCULUS OF GALLBLADDER W/O CHOLECYSTITIS W/O OBSTRUCTION Visit type - Case Type Case Type: ED Admission - Emergency Emergency Visit: Yes ED Registration Date: 12/27/17 Care time: The patient presented to the Emergency Department on the above date and was hospitalized for further evaluation of their emergent condition. - New patient This patient is new to me today: Yes Date on this admission: 12/27/17
[2017-12-27] MEDS: SODIUM CHLORIDE 1,000 ML IV SCH (08:14)
[2017-12-27 09:07] LABS: HEMATOCRIT 37.6 % (32.4-45.2); HEMOGLOBIN 12.6 GM/dL (10.7-15.3); MCH 30.2 pg (25.7-33.7); MCHC 33.5 g/dl (32.0-36.0); MEAN PLT VOLUME 10.3 fl (7.5-11.1); PLATELET COUNT 163 K/MM3 (134-434); RBC 4.18 M/mm3 (3.60-5.2); RDW 13.5 % (11.6-15.6); WHITE BLOOD COUNT 7.3 K/mm3 (4.0-10.0)
[2017-12-27 09:26] LABS: ALBUMIN 3.2 g/dl (3.4-5.0); ANION GAP 4 (8-16); BILIRUBIN,TOTAL 0.9 mg/dL (0.2-1.0); BLOOD UREA NITROGEN 11 mg/dL (7-18); CALCIUM 7.8 mg/dL (8.5-10.1); CHLORIDE 109 mmol/L (98-107); CO2 28 mmol/L (21-32); CREATININE 0.6 mg/dL (0.55-1.02); GLUCOSE,RANDOM 88 mg/dL (74-106); POTASSIUM 4.3 mmol/L (3.5-5.1); SGPT/ALT 282 U/L (12-78); SODIUM 141 mmol/L (136-145); TOT PROT 6.1 g/dl (6.4-8.2)
[2017-12-27 09:27] LABS: ALK PHOS 177 U/L (45-117)
[2017-12-27 09:31] LABS: SGOT/AST 404 U/L (15-37)
[2017-12-27 10:44] LABS: INR 1.07 (0.82-1.09); PROTHROMBIN TIME (PATIENT) 12.1 SEC (9.98-11.88)
--- NOTE | 2017-12-27 11:45 | EKG ---
Test Reason : Blood Pressure : / mmHG Vent. Rate : 083 BPM Atrial Rate : 083 BPM P-R Int : 148 ms QRS Dur : 106 ms QT Int : 366 ms P-R-T Axes : 057 014 030 degrees QTc Int : 430 ms NORMAL SINUS RHYTHM CANNOT RULE OUT ANTERIOR INFARCT , AGE UNDETERMINED ABNORMAL ECG WHEN COMPARED WITH ECG OF 30-OCT-2017 10:57, NO SIGNIFICANT CHANGE WAS FOUND Confirmed by JEFERSON LAWLER, FREEMAN ([id number]) on 12/27/2017 11:45:10 AM Referred By: Confirmed By:FREEMAN GOVEA MD
[2017-12-27] MEDS ORDERED: diazePAM 5 MG TABLET PO ONE ×2 (14:00→21:15)
--- NOTE | 2017-12-27 16:00 | PN ---
Physical Exam: SUBJECTIVE: Patient seen and examined No acute events overnight. Patient continues to have abdominal pain this morning. OBJECTIVE: Vital Signs Period Temp Pulse Resp BP Sys/Iqbal Pulse Ox Last 24 Hr 97.8 F-98.6 F 65-89 17-20 109-132/58-79 97-100 GENERAL: The patient is awake, alert, and fully oriented, in no acute distress. HEAD: Normal with no signs of trauma. EYES: Extraocular movements intact, sclera anicteric, conjunctiva clear. No ptosis. ENT: Oropharynx clear without exudates, moist mucous membranes. NECK: Trachea midline, full range of motion, supple. LUNGS: Breath sounds equal, clear to auscultation bilaterally, no wheezes, no crackles, no accessory muscle use. HEART: Regular rate and rhythm, S1, S2 without murmur, rub or gallop. ABDOMEN: Soft, RUQ and RLQ tenderness, nondistended, normoactive bowel sounds, no guarding, no rebound, no hepatosplenomegaly, no masses. EXTREMITIES: 2+ pulses, warm, well-perfused, no edema. NEUROLOGICAL: Cranial nerves II through XII grossly intact. No focal deficits PSYCH: Normal mood, normal affect. SKIN: Warm, dry, normal turgor, no rashes or lesions noted Laboratory Results - last 24 hr 12/26/17 12/26/17 12/26/17 22:45 22:45 22:45 WBC 8.2 D RBC 4.53 Hgb 13.8 Hct 39.9 MCV 88.1 MCH 30.4 MCHC 34.5 RDW 13.1 Plt Count 187 MPV 10.1 Neutrophils % 49.1 D Lymphocytes % 41.6 H Monocytes % 6.8 Eosinophils % 2.1 Basophils % 0.4 PT with INR 12.00 H INR 1.06 Sodium Potassium Chloride Carbon Dioxide Anion Gap BUN Creatinine Creat Clearance w eGFR Random Glucose Calcium Total Bilirubin AST ALT Alkaline Phosphatase Total Protein Albumin Total Amylase Lipase Serum , Qual Negative Blood Type Antibody Screen Antibody Identification Antigen Identification 12/26/17 12/27/17 12/27/17 22:45 02:05 07:18 WBC 7.3 RBC 4.18 Hgb 12.6 Hct 37.6 MCV 90.0 MCH 30.2 MCHC 33.5 RDW 13.5 Plt Count 163 MPV 10.3 Neutrophils % Lymphocytes % Monocytes % Eosinophils % Basophils % PT with INR INR Sodium 139 Potassium 3.9 Chloride 103 Carbon Dioxide 27 Anion Gap 9 BUN 16 Creatinine 0.8 Creat Clearance w eGFR > 60 Random Glucose 114 H Calcium 9.2 Total Bilirubin 0.5 AST 145 H ALT 107 H Alkaline Phosphatase 156 H Total Protein 7.4 Albumin 3.8 Total Amylase 97 Lipase 181 Serum , Qual Blood Type O POSITIVE Antibody Screen Positive H Antibody Identification No Result Required. Antigen Identification No Result Required. 12/27/17 12/27/17 07:18 10:24 WBC RBC Hgb Hct MCV MCH MCHC RDW Plt Count MPV Neutrophils % Lymphocytes % Monocytes % Eosinophils % Basophils % PT with INR 12.10 H INR 1.07 Sodium 141 Potassium 4.3 Chloride 109 H Carbon Dioxide 28 Anion Gap 4 L BUN 11 Creatinine 0.6 Creat Clearance w eGFR > 60 Random Glucose 88 Calcium 7.8 L Total Bilirubin 0.9 D AST 404 H ALT 282 H Alkaline Phosphatase 177 H Total Protein 6.1 L Albumin 3.2 L Total Amylase Lipase Serum , Qual Blood Type Antibody Screen Antibody Identification Antigen Identification Active Medications Generic Name Dose Route Start Last Admin Trade Name Freq PRN Reason Stop Dose Admin Sodium Chloride 1,000 mls @ 125 mls/hr 12/27/17 08:00 12/27/17 08:14 Normal Saline - IV 125 mls/hr ASDIR IZABELLA Administration Morphine Sulfate 2 mg 12/27/17 01:57 12/27/17 06:27 Morphine Sulfate IVPUSH 2 mg Q6H PRN Administration PAIN LEVEL 6-10 ASSESSMENT/PLAN: 42 year old F with pmh of PUD, asthma, and ?HLD presented with RUQ abdominal pain #Biliary colic with transaminitis, ? Choledhocolithiasis -Patient is pending MRCP, will pre medicate with valium 5mg prior to MRI -Surgery consult, Dr. Gee -If pt has stones on MRCP, may need ERCP -GI consult -NPO -IVF @ 125 cc/hr -Pain control with morphine #Asthma -Stable -Nebs prn #FEN/GI -IVF NS @ 125 cc/hr -wnl -NPO #PPx -Early Ambulation Visit type - Emergency Visit Emergency Visit: Yes ED Registration Date: 12/27/17 Care time: The patient presented to the Emergency Department on the above date and was hospitalized for further evaluation of their emergent condition. - New Patient This patient is new to me today: Yes Date on this admission: 12/27/17 - Critical Care Critical Care patient: No
--- NOTE | 2017-12-27 18:36 | PN ---
Teaching Attending Note Name of Resident: Ho Kumar ATTENDING PHYSICIAN STATEMENT I saw and evaluated the patient. I reviewed the resident's note and discussed the case with the resident. I agree with the resident's findings and plan as documented. SUBJECTIVE: No fever or chills , had no ABD pain at time of evaluation . NO N/V . feels better . OBJECTIVE: NAD CV: RRR Lungs: CTAB Ext: no edema Abd: soft, TTP in RUQ with no rebound tenderness or guarding . Neg Santiago's sign. ASSESSMENT AND PLAN: 42 y/o lady with h/o PUD , recent diagnosis of HP , with incomplete treatment , HLP , and asthma who presented with recurrent Abd pain. 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 hold off ABx. will start if fever or signs of infection - surgical eval appreciated , likely CCY this admisison. - if CBD stones, then possibly GI and ERCP - NPO , IVF - hepatitis panel last admission Neg 2- asthma , stable . HLOC
--- NOTE | 2017-12-27 18:59 | CON.GI ---
Consult Consult Specialty:: GI Referred by:: [facility] - History of Present Illness History of Present Illness: 42 y/o female with PMH of cholelithiasis was suppose to have sugery for biliary colic November [address] Gee. She was admitted last with similar symptoms of abdominal pain. She was noted to have elevated liver enzymes. On this admission, her liver enzymes were elevated. - Past Medical History ...LMP: 10/07/17 - Past Surgical History Past Surgical History: Yes: None - Alcohol/Substance Use Hx Alcohol Use: No History of Substance Use: reports: None - Smoking History Smoking history: Never smoked Have you smoked in the past 12 months: No Aproximately how many cigarettes per day: 0 - Social History Usual Living Arrangement: With Spouse History of Recent Travel: No Home Medications - Allergies Allergies/Adverse Reactions: Allergies Allergy/AdvReac Type Severity Reaction Status Date / Time No Known Allergies Allergy Verified 12/26/17 22:19 - Home Medications Home Medications: Ambulatory Orders Albuterol 0.083% Nebulizer Dahlia [Ventolin 0.083% Nebulizer Soln -] 1 neb NEB ONCE 12/27/17 Albuterol Sulfate Inhaler - [Ventolin HFA Inhaler -] 1 puff IH Q4H 12/27/17 Physical Exam-GI Vital Signs: Vital Signs Temperature 98.4 F 12/27/17 14:00 Pulse Rate 65 12/27/17 14:00 Respiratory Rate 17 12/27/17 14:00 Blood Pressure 118/58 12/27/17 14:00 O2 Sat by Pulse Oximetry (%) 97 12/27/17 09:00 Constitutional: Yes: Well Nourished Eyes: Yes: Conjunctiva Clear HENT: Yes: Atraumatic Neck: Yes: Supple Cardiovascular: Yes: Regular Rate and Rhythm Respiratory: Yes: CTA Bilaterally ...Palpate: Yes: Soft, Tenderness (ruq). No: Firm/Rigid, Guarding, Hepatomegaly , Mass, Splenomegaly Labs: CBC, BMP 12/27/17 07:18 12/27/17 07:18 INR, PTT INR 1.07 (0.82-1.09) 12/27/17 10:24 Problem List - Problems (1) Elevated liver enzymes Assessment/Plan: r/o secondary to CBD with biliary sludge R> Actigall 300mg bid MRCP to r/o CBD stones Code(s): R74.8 - ABNORMAL LEVELS OF OTHER SERUM ENZYMES (2) Cholelithiasis Code(s): K80.20 - CALCULUS OF GALLBLADDER W/O CHOLECYSTITIS W/O OBSTRUCTION
[2017-12-27] MEDS: URSODIOL 300 MG CAPSULE PO SCH (21:12)
[2017-12-28] MEDS: SODIUM CHLORIDE 1,000 ML IV SCH ×4 (02:46→18:04)
[2017-12-28 08:00] LABS: BLOOD UREA NITROGEN 9 mg/dL (7-18); CREATININE 0.5 mg/dL (0.55-1.02); GLUCOSE,RANDOM 68 mg/dL (74-106); SODIUM 143 mmol/L (136-145)
[2017-12-28 08:01] LABS: ALBUMIN 2.9 g/dl (3.4-5.0); ALK PHOS 152 U/L (45-117); ANION GAP 8 (8-16); BILIRUBIN,TOTAL 0.6 mg/dL (0.2-1.0); CALCIUM 7.6 mg/dL (8.5-10.1); CHLORIDE 110 mmol/L (98-107); CO2 25 mmol/L (21-32); POTASSIUM 4.3 mmol/L (3.5-5.1); SGOT/AST 107 U/L (15-37); SGPT/ALT 200 U/L (12-78); TOT PROT 5.6 g/dl (6.4-8.2)
[2017-12-28 08:09] LABS: BASO % 0.3 % (0-2.0); EOS % 4.2 % (0-4.5); HEMOGLOBIN 11.4 GM/dL (10.7-15.3); LYMPH % 47.7 % (8-40); MCH 30.3 pg (25.7-33.7); MCHC 33.5 g/dl (32.0-36.0); MEAN CELL VOLUME 90.3 fl (80-96); MEAN PLT VOLUME 10.4 fl (7.5-11.1); MONO % 6.5 % (3.8-10.2); NEUT % 41.3 % (42.8-82.8); PLATELET COUNT 134 K/MM3 (134-434); RBC 3.76 M/mm3 (3.60-5.2); RDW 13.6 % (11.6-15.6); WHITE BLOOD COUNT 4.9 K/mm3 (4.0-10.0)
[2017-12-28] MEDS: URSODIOL 300 MG CAPSULE PO SCH (10:21)
--- NOTE | 2017-12-28 11:37 | PN ---
Physical Exam: SUBJECTIVE: Patient seen and examined No acute events overnight. Patient went down for MRCP but was unable to tolerate procedure. Patient states abdominal pain is improved this morning. Denies fever, chills, nausea, vomiting. OBJECTIVE: Vital Signs Period Temp Pulse Resp BP Sys/Iqbal Pulse Ox Last 24 Hr 97.6 F-98.4 F 60-77 17-20 110-121/58-70 97-97 GENERAL: The patient is awake, alert, and fully oriented, in no acute distress. HEAD: Normal with no signs of trauma. EYES: Extraocular movements intact, sclera anicteric, conjunctiva clear. No ptosis. ENT: Oropharynx clear without exudates, moist mucous membranes. NECK: Trachea midline, full range of motion, supple. LUNGS: Breath sounds equal, clear to auscultation bilaterally, no wheezes, no crackles, no accessory muscle use. HEART: Regular rate and rhythm, S1, S2 without murmur, rub or gallop. ABDOMEN: Soft, RUQ and RLQ tenderness to deep palpation, nondistended, normoactive bowel sounds, no guarding, no rebound, no hepatosplenomegaly, no masses. EXTREMITIES: 2+ pulses, warm, well-perfused, no edema. NEUROLOGICAL: Cranial nerves II through XII grossly intact. No focal deficits PSYCH: Normal mood, normal affect. SKIN: Warm, dry, normal turgor, no rashes or lesions noted Laboratory Results - last 24 hr 12/28/17 12/28/17 07:00 07:00 WBC 4.9 D RBC 3.76 Hgb 11.4 Hct 34.0 MCV 90.3 MCH 30.3 MCHC 33.5 RDW 13.6 Plt Count 134 MPV 10.4 Neutrophils % 41.3 L Lymphocytes % 47.7 H Monocytes % 6.5 Eosinophils % 4.2 D Basophils % 0.3 Sodium 143 Potassium 4.3 Chloride 110 H Carbon Dioxide 25 Anion Gap 8 BUN 9 Creatinine 0.5 L Creat Clearance w eGFR > 60 Random Glucose 68 L Calcium 7.6 L Total Bilirubin 0.6 D AST 107 H ALT 200 H Alkaline Phosphatase 152 H Total Protein 5.6 L Albumin 2.9 L Active Medications Generic Name Dose Route Start Last Admin Trade Name Freq PRN Reason Stop Dose Admin Sodium Chloride 1,000 mls @ 125 mls/hr 12/27/17 08:00 12/28/17 10:39 Normal Saline - IV 125 mls/hr ASDIR IZABELLA Administration Morphine Sulfate 2 mg 12/27/17 01:57 12/27/17 06:27 Morphine Sulfate IVPUSH 2 mg Q6H PRN Administration PAIN LEVEL 6-10 Ursodiol 300 mg 12/27/17 22:00 12/28/17 10:21 Actigal - PO Not Given BID IZABELLA ASSESSMENT/PLAN: 42 year old F with pmh of PUD, asthma, and ?HLD presented with RUQ abdominal pain #Biliary colic with transaminitis, ? Choledhocolithiasis, improving -Surgery consult, Dr. Gee -Patient for OR today at 2 pm for Lap Bailey -GI consult -NPO -IVF @ 125 cc/hr -Pain control with morphine 2mg q6h -Actigal 300 bid -Hep C ab pending #Asthma -Stable -Nebs prn #FEN/GI -IVF NS @ 125 cc/hr -wnl -NPO #PPx -Early Ambulation Visit type - Emergency Visit Emergency Visit: Yes ED Registration Date: 12/27/17 Care time: The patient presented to the Emergency Department on the above date and was hospitalized for further evaluation of their emergent condition. - New Patient This patient is new to me today: No - Critical Care Critical Care patient: No
[2017-12-28] MEDS ORDERED: MIDAZOLAM HCL 2 MG/2 ML SINGLE DOSE VIAL ONE (14:39)
[2017-12-28] MEDS ORDERED: ROCURONIUM BROMIDE 50 MG/5 ML VIAL ONE ×2 (14:44→15:28)
[2017-12-28] MEDS ORDERED: ceFAZolin SODIUM 1 GM VIAL IVPB ONE (14:47)
[2017-12-28] MEDS ORDERED: ceFAZolin SODIUM 1 GM VIAL ONE (14:56)
[2017-12-28] MEDS ORDERED: BUPIVACAINE HCL/PF 0.5% (5MG/ML) 10 ML VIAL IJ ONE ×3 (15:07→15:47)
--- NOTE | 2017-12-28 15:11 | PN ---
Teaching Attending Note Name of Resident: Ortiz Ramírez ATTENDING PHYSICIAN STATEMENT I saw and evaluated the patient. I reviewed the resident's note and discussed the case with the resident. I agree with the resident's findings and plan as documented. SUBJECTIVE: No fever or chills. has minimal RUQ pain, no N/V . OBJECTIVE: NAD CV: RRR Lungs: CTAB Ext: no edema Abd: soft, TTP in RUQ with no rebound tenderness or guarding . Neg Santiago's sign. ASSESSMENT AND PLAN: 42 y/o lady with h/o PUD , recent diagnosis of HP , with incomplete treatment , HLP , and asthma who presented with recurrent Abd pain. 1- Bilary colic: possible passage of stone , vs sludge. LFTS improved , indicating no persistent blockage - could not tolerate MRCP. - for CCY today - cont ursodiol - NPO , IVF - hepatitis panel last admission Neg 2- asthma , stable . possible dc tomorrow if no complications
[2017-12-28] MEDS ORDERED: GLYCOPYRROLATE 0.2 MG/1 ML VIAL ONE (15:49)
[2017-12-28] MEDS ORDERED: NEOSTIGMINE METHYLSULFATE 0.5 MG/ML - 10 ML MDV ONE (15:49)
[2017-12-28] MEDS ORDERED: PROPOFOL 20 ML ONE (15:58)
--- NOTE | 2017-12-28 16:01 | OP ---
Operative Note - Note: Operative Date: 12/28/17 Pre-Operative Diagnosis: acute cholecystitis/cholelithiasis Operation: laparoscopic cholecystectomy Findings: acute cholecystitis/cholelithiasis Post-Operative Diagnosis: Same as Pre-op Surgeon: Gary Gee Freight Inspector: Luz Marte Anesthesia: General Specimens Removed: gallbladder and contents Estimated Blood Loss (mls): 20
[2017-12-28] MEDS ORDERED: oxyCODONE HCL 5 MG TABLET PO PRN ×2 (16:08)
[2017-12-28] MEDS ORDERED: ALBUTEROL SO4 0.083% IH SOL 2.5 MG/3 ML VIAL.NEB. NEB PRN (16:10)
[2017-12-28] MEDS ORDERED: ONDANSETRON 4 MG/2 ML VIAL IVPUSH PRN (16:11)
--- NOTE | 2017-12-28 16:19 | SURG ---
Surgery Client Business Manager Note Client Business Manager: Luz Marte PA-C Date of Service: 12/28/17 Diagnosis: cholecystisis Cholelithiasis Procedure: laparoscopic cholecystectomy I was present for the entirety of the operative procedure. For further detail, please refer to operative report. Visit type - Case Type Case Type: ED Admission - Emergency Emergency Visit: Yes ED Registration Date: 12/27/17 Care time: The patient presented to the Emergency Department on the above date and was hospitalized for further evaluation of their emergent condition. - New patient This patient is new to me today: Yes Date on this admission: 12/28/17
[2017-12-28] MEDS ORDERED: KETOROLAC TROMETHAMINE 30 MG/1 ML VIAL IVPUSH PRN ×2 (16:25→18:00)
[2017-12-28] MEDS ORDERED: morphine SULFATE 4 MG/ML VIAL IVPUSH PRN (17:26)
[2017-12-28] MEDS: HEPARIN NA (PORCINE) 5,000 UNITS/ML 1ML VIAL SQ SCH (21:47)
[2017-12-29] MEDS: HEPARIN NA (PORCINE) 5,000 UNITS/ML 1ML VIAL SQ SCH ×2 (05:43→14:46)
[2017-12-29] MEDS: SODIUM CHLORIDE 1,000 ML IV SCH (05:47)
--- NOTE | 2017-12-29 08:23 | PN ---
Progress Note (short form) - Note Progress Note: surgery POD#1` Laparoscopic cholecystectomy patient seen and examined at bedside. Patient states she has some discomfort in the abdomen but no new or worsening symptoms. She has been voiding, tolerating clears and ambulating. She denies any CP, SOB, N/V Fever or chills. Vital Signs Temp 98.6 F 12/29/17 06:00 Pulse 60 12/29/17 06:00 Resp 20 12/29/17 06:00 BP 120/66 12/29/17 06:00 Pulse Ox 98 12/28/17 21:00 Intake & Output 12/28/17 12/28/17 12/29/17 11:59 23:59 11:59 Intake Total 2850 1800 Output Total 2520 600 Balance 330 1200 Weight 194 lb Intake: IV 2250 1500 Normal Saline - 1,000 ml 750 1500 @ 125 mls/hr IV ASDIR IZABELLA Rx#:[id number] Oral 600 300 Output: Urine 2500 600 Void 1900 600 Estimated Blood Loss 20 Other: Voiding Method Toilet Toilet # Unmeasured Voids Void 5 3 Bowel Movement No Weight Measurement Method Built in Bedscale PE: A&Ox3, NAD unlabored resp on RA Abd: obese, ND, With mild TTP over right upper quadrant and subxyphoid space, Dressing d/c/d with surrounding tissue intact and no evidence of tracking erythema. b/l LE compartments soft, supple and non-tender to palpation, +2 pedal pulses b/ l Problem List - Problems (1) Cholelithiasis Assessment/Plan: POD #1 Lap Cholecystectomy 1) advance to regular diet today if tolerated plan to d/c home 2) continue DVT prophylaxis 3) OOB and up to chair for meals 4) d/c planning for home today vs tomorrow after labs reviewed evaluation and plan discussed with Dr Gee Code(s): K80.20 - CALCULUS OF GALLBLADDER W/O CHOLECYSTITIS W/O OBSTRUCTION
[2017-12-29 08:56] LABS: BASO % 0.2 % (0-2.0); EOS % 0.1 % (0-4.5); HEMOGLOBIN 12.2 GM/dL (10.7-15.3); LYMPH % 26.2 % (8-40); MCH 30.2 pg (25.7-33.7); MCHC 33.8 g/dl (32.0-36.0); MEAN CELL VOLUME 89.5 fl (80-96); MEAN PLT VOLUME 10.3 fl (7.5-11.1); MONO % 7.3 % (3.8-10.2); NEUT % 66.2 % (42.8-82.8); PLATELET COUNT 154 K/MM3 (134-434); RBC 4.02 M/mm3 (3.60-5.2); RDW 13.3 % (11.6-15.6); WHITE BLOOD COUNT 8.1 K/mm3 (4.0-10.0)
[2017-12-29 09:26] LABS: ANION GAP 9 (8-16); BILIRUBIN,TOTAL 0.4 mg/dL (0.2-1.0); BLOOD UREA NITROGEN 5 mg/dL (7-18); CALCIUM 8.1 mg/dL (8.5-10.1); CHLORIDE 106 mmol/L (98-107); CO2 27 mmol/L (21-32); CREATININE 0.5 mg/dL (0.55-1.02); GLUCOSE,RANDOM 101 mg/dL (74-106); SGOT/AST 86 U/L (15-37); SGPT/ALT 154 U/L (12-78); SODIUM 142 mmol/L (136-145); TOT PROT 5.7 g/dl (6.4-8.2)
[2017-12-29 09:27] LABS: ALK PHOS 141 U/L (45-117)
--- NOTE | 2017-12-29 13:13 | PN ---
Teaching Attending Note Name of Resident: Ortiz Ramírez ATTENDING PHYSICIAN STATEMENT I saw and evaluated the patient. I reviewed the resident's note and discussed the case with the resident. I agree with the resident's findings and plan as documented. SUBJECTIVE: no fever ro chills, tolerated diet, passed gas , no BM yet. abd pain is tolerated. OBJECTIVE: NAD CV: RRR Lungs: CTAB Ext: no edema Abd: soft, TTP in suprapubic area and RUQ. no rebound tenderness or guarding. steristrips over endoscopic wounds. ASSESSMENT AND PLAN: 42 y/o lady with h/o PUD , recent diagnosis of HP , with incomplete treatment , HLP , and asthma who presented with recurrent Abd pain. 1- Acute cholecystitis : s/p CCY yesterday. doing well , pssed gas . . - low fat diet - oxy for pain . advised not to drive while on oxy due to sedation . - f/u with GI and Sx 2- asthma , stable . dc home today
--- NOTE | 2017-12-29 14:30 | DS ---
Physical Exam: Selected Entries 12/29/17 12/29/17 08:00 15:44 Temperature 97.9 F Pulse Rate 76 Blood Pressure 120/67 O2 Sat by Pulse 96 Oximetry (%) Oxygen Delivery Room Air Method Laboratory Tests 12/26/17 12/27/17 12/27/17 22:45 07:18 10:24 WBC Hgb Hct Plt Count PT with INR 12.10 H INR 1.07 AST 145 H 404 H ALT 107 H 282 H Alkaline Phosphatase 156 H 177 H 12/28/17 12/29/17 12/29/17 07:00 07:30 07:45 WBC 8.1 D Hgb 12.2 Hct 36.0 Plt Count 154 PT with INR INR AST 107 H 86 H ALT 200 H 154 H Alkaline Phosphatase 152 H 141 H Laboratory Tests 12/28/17 07:00 Hep C Ab Diagnostic Pending Ruq u/s- cholelithiasis, acute cholecystitis, no cbd stone, no biliary duct dilation, 2 cm suprarenal soft tissue nodule, 0.6 and 0.4 mm pancreatic head cysts cxr- no acute pathology HOSPITAL COURSE: Date of Admission:12/27/17 Date of Discharge: 12/29/17 42 yo F with a PMHx of HLD, Asthma, PUD, recent admission for cholelithiasis, presented because of 10/10, constant, non-radiating, RUQ pain. Patient admitted for ?acute cholecystitis. Patient underwent u/s and MRCP, which revealed acute cholecystitis. MRCP was limited 2/2 to patient's claustrophobia. Patient underwent uncomplicated laproscopic cholecystectomy. Patient tolereated po intake post op and was passing flatus. She was discharged home with surgery, GI , and pcp follow up. Minutes to complete discharge: 40 Discharge Summary Reason For Visit: ELEVATED LIVER ENZYMES,NAUSEA AND VOMITING Current Active Problems Asthma (Chronic) Condition: Improved - Instructions Diet, Activity, Other Instructions: You were in the hospital due to an inflamed gallbladder, which was removed by Dr. Gee. Dr. Gee Discharge Instructions Dear VLADIMIR DAVILA, Post Operative Instructions Physical activity Resume your normal everyday activity as tolerated no heavy lifting or exercise until seen by your surgeon. You may walk unlimited amounts of and climb stairs. You may resume driving the car when you feel safe and comfortable behind the wheel. Wound care If you have a bandage, leave it on, and keep dry for 48 - 72 hours. After that time discard the outer bandage. If there are tapes on the skin under the outer bandage, leave them in place. They will peel off in the next 7 to 10 days. Do Not peel them off. You may shower 2 days after surgery. If there are tapes present on the skin, they can get wet. Diet There are no dietary restrictions. Eat healthy, high-fiber foods. Drink 6 to 8 glasses of liquid each day. This will assist in keeping your bowels are regular. Pain management You may take Ibuprofen (for example, Motrin, Advil etc.) Any pain prescription medication ordered should be taken as prescribed for moderate to severe pain. Call Dr. Gee for any of the following: Severe pain not relieved by medication Fever of 101 or higher Excessive bleeding or drainage on dressing Inability to urinate Call the office at [phone] for a post operative appointment in 7 - 10 days. Otherwise, Please follow up with your primary care provider, surgeon (Dr. Gee ), and GI doctor (Dr. Caputo) within 1 week. Information has been given to you. Please call to make an appointment Please take oxycodone for pain as needed. do not drive while on oxycodone or climb ladders while on it Continue your home albuterol as needed for asthma. If you have chest pain, shortness of breath, or any new/worsening symptoms please come back to the hospital immediately. Referrals: Gary Gee MD [Staff Physician] - 1 Week Babak Caputo MD [Staff Physician] - 1 Week Megan Tsang [Primary Care Provider] - 1 Week Disposition: HOME - Home Medications Comprehensive Discharge Medication List: Ambulatory Orders Oxycodone HCl 5 mg PO Q12H PRN #6 capsule MDD 10 mg 12/29/17 This patient is new to me today: No Emergency Visit: Yes ED Registration Date: 12/27/17 Care time: The patient presented to the Emergency Department on the above date and was hospitalized for further evaluation of their emergent condition. Critical Care patient: No - Discharge Referral Referred to [facility] Med [facility] No
--- NOTE | 2017-12-29 15:11 | OP ---
DATE OF OPERATION: 12/28/2017 PREOPERATIVE DIAGNOSIS: Cholecystitis, cholelithiasis. POSTOPERATIVE DIAGNOSIS: Cholecystitis, cholelithiasis. PROCEDURE: Laparoscopic cholecystectomy. SURGEON: Gary Gee MD MANAGER OF FINANCIAL: Luz Marte PA-C ANESTHESIA: General. OPERATIVE FINDINGS: Acute cholecystitis and cholelithiasis. The rest of the findings are unremarkable. DESCRIPTION OF PROCEDURE: The patient was placed on the operating room table in supine position. After the induction of general anesthesia, the patient's abdomen was prepped with ChloraPrep and draped in sterile fashion. Time-out was taken and then pneumoperitoneum established above the umbilicus using a Veress needle. Once 15 mm of intra-abdominal pressure was obtained, a 5-mm port was placed at the umbilicus. Additional lateral 5-mm ports and a subxiphoid 12-mm port were placed and laparoscopy carried out, and the previously noted findings were observed. The gallbladder was placed on cephalad and lateral traction, and dissection was begun at the neck of the gallbladder where the peritoneum was opened medially and laterally using blunt and sharp dissection and electrocautery. Dissection continued in the triangle of Calot where the cystic duct was identified coursing from the neck of the gallbladder distally to the common bile duct. It was dissected proximally and distally for length. Similarly, the artery was similarly identified and dissected. A critical view of safety was taken, and then the cystic duct divided proximally and distally using Endo Boone after it was clipped twice proximally and distally with large hemoclips. The artery was similarly clipped and divided. Hemostasis was checked for and noted to be good and then the gallbladder was removed from the liver bed in a retrograde fashion using electrocautery. Prior to removal from the edge of the liver, hemostasis was again verified and then the gallbladder removed from the edge of the liver, placed in an EndoCatch, and brought out through the subxiphoid port. Pneumoperitoneum was reestablished, hemostasis verified again, and then the 5-mm lateral and subxiphoid ports were removed under laparoscopic vision without evidence of bleeding from the port sites. The umbilical port was removed and the pneumoperitoneum evacuated. All port sites were infiltrated with 0.5% Marcaine and the skin edges closed with 4-0 Biosyn in a subcuticular and continuous fashion. Steri-Strips and Band-Aid dressings were placed and the procedure terminated at this point and the patient aroused from general anesthesia and transferred to the post anesthesia care unit in stable condition awake and alert. ESTIMATED BLOOD LOSS: 20 mL. REPLACEMENTS: Crystalloid. DRAINS: None. SPECIMENS: Gallbladder and contents to pathology. I, Gary Gee, was physically present in the operating room from the time the patient was placed on the operating room table until she was transferred to the post anesthesia care unit in my company. MD LUCIO Schaeffer/[id number] MTDD
[2017-12-29 15:46] VITALS: BP 120/67; PULSE 76; TEMP 97.9
--- NOTE | 2018-01-01 15:15 | PATH ---
Surgical Pathology Report Patient Name: VLADIMIR DAVILA [facility]. Rec. #: [id number] /Age/Gender: 1975 (Age: 42) / F Account: [id number] Location: [address] [place] [address] Taken: 12/28/2017 Received: 12/29/2017 Reported: 01/01/2018 Physicians: MD Elinor Licona M.D. Specimen(s) Received GALLBLADDER Clinical History It Cholecystitis, cholelithiasis Final Diagnosis GALLBLADDER, LAPAROSCOPIC CHOLECYSTECTOMY: CHRONIC CHOLECYSTITIS WITH CHOLELITHIASIS AND CHOLESTEROLOSIS. Electronically Signed Rocio Oscar M.D. Gross Description Received in formalin, labeled "gallbladder," is a 6.0 x 2.3 x 2.1 cm. gallbladder with a 0.2 cm. in length portion of cystic duct attached. The outer surface is burdick-pink with a focal defect and varies from smooth to shaggy. The lumen contains burdick, tenacious bile as well as abundant yellow, spherical choleliths ranging from 0.1-0.3 cm in greatest dimension. The mucosa is burdick green with gold cholesterol stippling. The wall of the gallbladder averages 0.2 cm. in thickness. Radiological Technician sections are submitted in one cassette. 12/29/2017 [facility]12/29/2017
== END 2017-12-29 17:57 | disposition home or self-care (01) | DRG 263 ==
LOC: JER 22:13 → JERBED 12-27 01:22 → OBSVTOIN 12-27 01:52 → J6S 12-27 02:12
PROVIDERS: ADMIT Internal Medicine; ATTEND Internal Medicine
PROC: 0FT44ZZ Resection of Gallbladder, Percutaneous Endoscopic Approach (ICD-10-PCS; principal; 2017-12-28 14:00)
DX: K80.00 Calculus of gallbladder with acute cholecystitis without obstruction (principal); J45.909 Unspecified asthma, uncomplicated; K27.9 Peptic ulcer, site unspecified, unspecified as acute or chronic, without hemorrhage or perforation; F32.9 Major depressive disorder, single episode, unspecified; F41.0 Panic disorder [episodic paroxysmal anxiety]; K76.0 Fatty (change of) liver, not elsewhere classified; R74.0 Nonspecific elevation of levels of transaminase and lactic acid dehydrogenase [LDH]; K86.2 Cyst of pancreas
CPT/HCPCS: 36415; 71045-TC-FY; 74181-TC; 76705-TC; 80053; 82150; 83690; 84703; 85025; 85027; 85610; 86850; 86870; 86900; 86901; 86902; 88304-TC; 93005; 93010; 94760; 99283-25; G0378; J1644; J7030

== ENCOUNTER 2018-08-14 09:26 | Emergency (ER) | payer OTHER ==
[2018-08-14 09:52] VITALS: BP 125/85; PULSE 78; TEMP 98.4; BMI 29.9
--- NOTE | 2018-08-14 10:38 | PDOC ---
Attending Attestation - HPI HPI: 08/14/18 11:15 CC: Epigastric pain, nausea, and diarrhea. HPI: The patient is a 43 year old female, with a significant past medical history of Peptic Ulcer Disease, HLD, and asthma, who presents to the emergency department with, 1 day of epigastric pain, nausea, and diarrhea. As per patient, her son is currently experiencing similar symptoms. She denies recent fevers, chills, headache or dizziness. She denies recent vomit. She denies recent dysuria, frequency, urgency or hematuria. She denies recent chest pain or shortness of breath. Allergies: NKA Past surgical history: . Laparoscopic cholecystectomy (12/2017). Social history: No reported cigarette, alcohol, or drug use. Primary Care Physician: Dr. Ramon - Physicial Exam PE: 08/14/18 11:16 Exam: Vitals: Triage Vital signs reviewed General Appearance: no acute distress, well nourished well developed, Head: Atraumatic, normocephalic Neck: Supple;No Nuchal rigidity Chest Wall: Nontender Cardiac: Regular rate and rhythm, no murmurs, no rubs, no gallops, Lungs: Clear to auscultation bilateral, good air movement bilaterally, Abdomen: Soft, nondistended, normal bowel sounds, nontender to palpation Rectal: Exam deferred Extremities: Full range of motion to all extremities, no cyanosis, clubbing, or edema Skin: Warm and dry, no rashes or lesions, no petechiae Neuro: AOX3; Cranial Nerves 2-12 grossly intact, Strength intact to all extremities, Sensation intact to all extremities Psych: normal mood, normal affect <Anahi Benson - Last Filed: 08/14/18 11:15> - Resident Resident Name: Marybeth Acosta - ED Attending Attestation I have performed the following: I have examined & evaluated the patient, The case was reviewed & discussed with the resident, I agree w/resident's findings & plan, Exceptions are as noted - Medical Decision Making 08/14/18 13:30 43 years old epigastric discomfort and profuse diarrhea. Child at home has a same symptomatology status post GI cocktail patient feels much better now tolerating fluids by mouth we'll follow up with her autocad operator this week. Repeat abdominal examination benign. Findings, need follow-up and strict return instructions discussed patient. <Tavo Odom - Last Filed: 08/14/18 15:49> Attestations - Attestations 08/14/18 11:16 Documentation prepared by Anahi Benson, acting as medical malpractice paralegal for Tavo Odom MD. <Anahi Benson - Last Filed: 08/14/18 11:15>
[2018-08-14] MEDS ORDERED: SODIUM CHLORIDE 0.9% 500 ML INFUS.BAG IV ONE (10:46)
[2018-08-14] MEDS ORDERED: MAG HYDROX/AL HYDROX/SIMETH 30 ML UNIT-DOSE CUP PO ONE (10:47)
[2018-08-14] MEDS ORDERED: FAMOTIDINE 20 MG/50 ML IVPB 20 MG/50 ML MG IVPB ONE ×2 (10:47→11:02)
[2018-08-14] MEDS ORDERED: LIDOCAINE VISCOUS 2% ORAL/TOP 20 ML UNIT-DOSE CUP MM ONE (10:47)
[2018-08-14] MEDS ORDERED: METOCLOPRAMIDE HCL INJECTION 10 MG/2 ML VIAL IVPUSH ONE (10:47)
[2018-08-14] MEDS ORDERED: AMOX TR/POT CLAV 875MG/125MG TABLETS (FP) PO ONE (10:53)
--- NOTE | 2018-08-14 10:55 | PDOC ---
History of Present Illness - General Chief Complaint: Pain, Acute Stated Complaint: ABD PAIN,NAUSEA Time Seen by Provider: 08/14/18 10:11 - History of Present Illness Initial Comments: Amirah Gloria is a 43yo woman with a PMH of HLD, PUD, asthma, s/p cholecystectomy who presents with one day of sharp epigastric pain that worsens with eating. She additionally reports 5+ episodes of watery diarrhea in the past 24hrs. She reports that the pain is non-radiating and not associated with movement or position. She tried taking Memo (weight loss pill?) as she feels it has improved stomach pain in the past, but there was no improvement today. She has some associated nausea along with the diarrhea but no vomiting, fever, chills, urinary symptoms, or lower abdominal pain. Ms Gloria reports that she does not remember ever having similar pain in the past. She does report that her son has similar symptoms. She denies any recent travel, change in diet, or other recent illness. Past History - Past Medical History Allergies/Adverse Reactions: Allergies Allergy/AdvReac Type Severity Reaction Status Date / Time No Known Allergies Allergy Verified 08/14/18 09:49 Home Medications: Ambulatory Orders Famotidine [Pepcid] 40 mg PO DAILY #15 tablet 08/14/18 Anemia: No Asthma: Yes COPD: No Hypercholesterolemia: Yes Psychiatric Problems: Yes (anxiety, not on meds) - Surgical History Cholecystectomy: Yes - Reproductive History (#): 6 Para: 5 - Immunization History Immunization Up to Date: Yes - Suicide/Smoking/Psychosocial Hx Smoking Status: No Smoking History: Never smoked Have you smoked in the past 12 months: No Number of Cigarettes Smoked Daily: 0 Hx Alcohol Use: No Drug/Substance Use Hx: No Substance Use Type: None Hx Substance Use Treatment: No Review of Systems - Review of Systems Comments:: General: No fevers, no chills, no weight or appetite change, no malaise HEENT: No changes in vision, no changes in hearing, no congestion, no sore throat CV: No chest pain, no palpitations, no LE edema Pulm: No SOB, no cough, no wheezing GI: +Nausea, +diarrhea. : No frequency, no urgency, no dysuria Musc: No back pain, no joint swelling, no recent injury Skin: No rash, no lesions, no erythema Endo: No excessive thirst, no heat/cold intolerance Heme: No unusual bruising or bleeding, no swollen glands Neuro: No syncope, no numbness/tingling, no focal weakness Vasc: No claudication Psych: No recent change in mood, no SI or HI *Physical Exam - Vital Signs Last Vital Signs Temp Pulse Resp BP Pulse Ox 98.4 F 78 18 125/85 98 08/14/18 09:49 08/14/18 09:49 08/14/18 09:49 08/14/18 09:49 08/14/18 09:49 - Physical Exam Comments: General: Comfortable, no acute distress HEENT: PERRL, EOMI, MMM, voice normal, normal neck ROM, no LAD Cards: RRR, no murmur appreciated Pulm: Comfortable on room air, clear to auscultation bilaterally Abd: Soft, nondistended. Epigastric TTP : No CVA tenderness Ext: Atraumatic. No LE edema. ROM intact. Strength 5/5 and equal bilaterally Vasc: Extremities WWP. Palpable radial and pedal pulses bilaterally Skin: Normal color, no rashes or lesions Neuro: A&Ox3, CN grossly intact, normal speech, motor/sensory grossly intact and symmetric Psych: Mood appropriate to situation Moderate Sedation - Procedure Monitoring Vital Signs: Procedure Monitoring Vital Signs Temperature 98.4 F 08/14/18 09:49 Pulse Rate 78 08/14/18 09:49 Respiratory Rate 18 08/14/18 09:49 Blood Pressure 125/85 08/14/18 09:49 O2 Sat by Pulse Oximetry (%) 98 08/14/18 09:49 ED Treatment Course - LABORATORY CBC & Chemistry Diagram: 08/14/18 11:00 08/14/18 11:00 Medical Decision Making - Medical Decision Making 08/14/18 11:15 Amirah Gloria is a 43yo woman with a PMH of HLD, PUD, asthma, and previous cholecystectomy who presents with epigastric pain and watery diarrhea since yesterday. - Relatively benign exam other than epigastric tenderness, no sign of acute abdomen - As she has a sick contact at home, symptoms are most likely infections. However as has a h/o PUD may be related to acid reflux/gastritis/ulcer. Could also be due to pancreatic pathology - Evaluate w/ CBC, CMP, lipase, amylase - IV fluid for likely mild dehydration. IV famotidine, reglan, GI cocktail for symptoms 08/14/18 13:12 - Labs reviewed, no concerning abnormalities - Ms Gloria reports that her symptoms have resolved - Plan to d/c home. Discussed home care, return precautions, and follow up. Already sees Dr Caputo; will schedule appointment. Ms Gloria understands and agrees with the plan. Discussed with Dr Odom. Marybeth Acosta PGY1 *DC/Admit/Observation/Transfer Diagnosis at time of Disposition: Gastroenteritis - Discharge Dispostion Disposition: HOME Condition at time of disposition: Stable Decision to Admit order: No - Prescriptions Prescriptions: Famotidine [Pepcid] 40 mg PO DAILY #15 tablet - Referrals Referrals: Remy Ramon MD [Primary Care Provider] - Babak Caputo MD [Staff Physician] - - Patient Instructions Printed Discharge Instructions: DI for Viral Gastroenteritis -- Adult Additional Instructions: Discharge Instructions: You were seen in the emergency department for upper abdominal pain and diarrhea. You had blood tests, and the results were all normal. You also received medication with improvement in your symtpoms. Home Care: - Make sure you are drinking plenty of fluids at home. Do not worry about eating solid food for a day or two as long as you are able to stay hydrated. If something bothers your stomach, do not force yourself to eat. Water, clear fruit juices (eg apple) or broth are good options. - When you are ready to eat solid foods, avoid spicy foods, caffeine, alcohol, and dairy - You have been prescribed an acid medication called Zantac. You should take this every day while your symptoms persist - For continued symptoms, you can take Maalox or Mylanta as needed. These medications are available over the counter at any pharmacy. They are antacids that coat the inside of the stomach to relieve symptoms. Follow Up: - Call Dr Caputo to make an appointment within the next 1-2 weeks, sooner if you have continued symptoms. He may need to do additional testing to see if you have stomach irritation or acid reflux - Seek immediate medical treatment if you have severe vomiting or pain that prevents you from eating, if you cannot keep down liquids to stay hydrated, or you notice blood in your stool. Instrucciones de descarga: Usted fue atendido en el servicio de urgencias por dolor abdominal superior y diarrea. Le hicieron anlisis de paula y los resultados fueron todos normales. Tambin recibi medicacin con mejora en erin sntomas. Cuidados en el hogar: - Asegrese de que est bebiendo muchos lquidos en casa. No se preocupe por comer alimentos slidos por un da o dos, siempre y cuando pueda mantenerse hidratado. Si algo le molesta a bass estmago, no se obligue a comer. El agua, los jugos de frutas claras (por ejemplo, la manzana) o el caldo son buenas opciones. - Cuando est listo para comer alimentos slidos, evite los alimentos picantes, la cafena, el alcohol y los lcteos. - Le guerrero recetado un medicamento cido llamado Zantac. Debe dane esto todos los sullivan mientras persistan erin sntomas. - Para los sntomas continuos, puede dane Maalox o Mylanta segn sea necesario. Estos medicamentos estn disponibles sin receta en cualquier farmacia. Son anticidos que recubren el interior del estmago para aliviar los sntomas. Seguir: - Llame al Dr. Caputo para hacer bhavik kacie dentro de las prximas 1-2 semanas, antes si tiene sntomas continuos. Es posible que deba realizar pruebas adicionales para biju si tiene irritacin estomacal o reflujo cido - Busque tratamiento mdico inmediato si tiene vmitos intensos o dolor que le impide comer, si no puede mantener los lquidos bajos para mantenerse hidratados o si nota paula en las heces. Print Language: MACEDONIAN - Post Discharge Activity
[2018-08-14] MEDS ORDERED: AMOX TR/POT CLAV 875MG/125MG TABLETS (FP) ONE (11:01)
[2018-08-14] MEDS ORDERED: LIDOCAINE VISCOUS 2% ORAL/TOP 20 ML UNIT-DOSE CUP ONE (11:01)
[2018-08-14] MEDS ORDERED: METOCLOPRAMIDE HCL INJECTION 10 MG/2 ML VIAL ONE (11:01)
[2018-08-14] MEDS ORDERED: MAG HYDROX/AL HYDROX/SIMETH 30 ML UNIT-DOSE CUP ONE (11:02)
[2018-08-14 11:18] LABS: BASO % 0.3 % (0-2.0); EOS % 3.2 % (0-4.5); HEMATOCRIT 39.7 % (32.4-45.2); HEMOGLOBIN 12.8 GM/dL (10.7-15.3); LYMPH % 39.2 % (8-40); MCH 28.9 pg (25.7-33.7); MCHC 32.4 g/dl (32.0-36.0); MEAN CELL VOLUME 89.4 fl (80-96); MONO % 7.9 % (3.8-10.2); NEUT % 49.4 % (42.8-82.8); PLATELET COUNT 195 K/MM3 (134-434); RBC 4.44 M/mm3 (3.60-5.2); RDW 13.9 % (11.6-15.6); WHITE BLOOD COUNT 5.8 K/mm3 (4.0-10.0)
[2018-08-14 12:00] LABS: ALBUMIN 3.4 g/dl (3.4-5.0); ALK PHOS 111 U/L (45-117); AMYLASE 78 U/L (25-115); ANION GAP 9 MMOL/L (8-16); BILIRUBIN,TOTAL 0.5 mg/dL (0.2-1); BLOOD UREA NITROGEN 11 mg/dL (7-18); CALCIUM 8.2 mg/dL (8.5-10.1); CHLORIDE 104 mmol/L (98-107); CO2 28 mmol/L (21-32); CREATININE 0.6 mg/dL (0.55-1.3); GLUCOSE,RANDOM 86 mg/dL (74-106); LIPASE 82 U/L (73-393); POTASSIUM 4.2 mmol/L (3.5-5.1); SGOT/AST 28 U/L (15-37); SGPT/ALT 29 U/L (13-61); SODIUM 141 mmol/L (136-145); TOT PROT 6.7 g/dl (6.4-8.2)
== END 2018-08-14 14:11 | disposition home or self-care (01) ==
LOC: JER 09:26
PROC: 3E033GC Introduction of Other Therapeutic Substance into Peripheral Vein, Percutaneous Approach (ICD-10-PCS; principal; 2018-08-14)
PROC: 3E033GC Introduction of Other Therapeutic Substance into Peripheral Vein, Percutaneous Approach (ICD-10-PCS; 2018-08-14)
DX: K52.9 Noninfective gastroenteritis and colitis, unspecified (principal); E78.5 Hyperlipidemia, unspecified; Z87.19 Personal history of other diseases of the digestive system; Z87.09 Personal history of other diseases of the respiratory system; Z90.49 Acquired absence of other specified parts of digestive tract
CPT/HCPCS: 36415; 80053; 82150; 83690; 85025; 96365; 96375; 99282-25

== ENCOUNTER 2019-07-04 17:41 | Emergency (ER) | payer OTHER ==
--- NOTE | 2019-07-04 17:46 | PDOC ---
Rapid Medical Evaluation Time Seen by Provider: 07/04/19 17:43 Medical Evaluation: Allergies Allergy/AdvReac Type Severity Reaction Status Date / Time No Known Allergies Allergy Verified 08/14/18 09:49 07/04/19 17:44 CC: left elbow pain PE: TTP over left later epicondyle Orders: xray Patient will proceed to ED for further evaluation. Discharge Disposition - Diagnosis Elbow pain, left - Referrals - Patient Instructions - Post Discharge Activity
[2019-07-04 17:51] VITALS: BP 140/63; PULSE 74; TEMP 98.5; BMI 20.5
[2019-07-04] MEDS ORDERED: KETOROLAC TROMETHAMINE 30 MG/1 ML VIAL IM ONE (19:19)
[2019-07-04] MEDS ORDERED: KETOROLAC TROMETHAMINE 30 MG/1 ML VIAL ONE (19:20)
--- NOTE | 2019-07-04 19:46 | PDOC ---
History of Present Illness - General Chief Complaint: Pain Stated Complaint: L ELBOW PAIN Time Seen by Provider: 07/04/19 17:43 History Source: Patient Exam Limitations: No Limitations - History of Present Illness Initial Comments: 07/04/19 19:40 44 yo F w/ a h/o asthma comes in c/o 2 days of L sided elbow pain. She does not recall anything to it, denies trauma, no fall. 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 No numbness/tingling, no weakness, no other complaints today. NO pain anywhere else 07/04/19 19:42 Past History - Past Medical History Allergies/Adverse Reactions: Allergies Allergy/AdvReac Type Severity Reaction Status Date / Time No Known Allergies Allergy Verified 08/14/18 09:49 Home Medications: Ambulatory Orders Famotidine [Pepcid] 40 mg PO DAILY #15 tablet 08/14/18 Anemia: No Asthma: Yes COPD: No Hypercholesterolemia: Yes Psychiatric Problems: Yes (anxiety, not on meds) - Surgical History Cholecystectomy: Yes - Reproductive History (#): 6 Para: 5 - Immunization History Immunization Up to Date: Yes - Psycho Social/Smoking Cessation Hx Smoking Status: No Smoking History: Never smoked Have you smoked in the past 12 months: No Number of Cigarettes Smoked Daily: 0 Hx Alcohol Use: No Drug/Substance Use Hx: No Substance Use Type: None Hx Substance Use Treatment: No Review of Systems - Review of Systems Able to Perform ROS?: Yes Constitutional: No: Chills, Fever, Malaise, Night Sweats HEENTM: No: Eye Pain, Recent change in vision, Throat Pain Respiratory: No: Cough, Shortness of Breath Cardiac (ROS): No: Chest Pain, Palpitations, Chest Tightness ABD/GI: No: Diarrhea, Nausea, Vomiting, Abdominal cramping : No: Dysuria, Hematuria Musculoskeletal: No: Back Pain Integumentary: No: Rash Neurological: No: Headache, Numbness, Dizziness Psychiatric: No: Change in Appetite Endocrine: No: Unexplained Weight Loss *Physical Exam - Vital Signs Last Vital Signs Temp Pulse Resp BP Pulse Ox 98.5 F 74 16 140/63 100 07/04/19 17:45 07/04/19 17:45 07/04/19 17:45 07/04/19 17:45 07/04/19 17:45 - Physical Exam General Appearance: Yes: Nourished. No: Apparent Distress HEENT: positive: ART, Normal ENT Inspection, Normal Voice. negative: Pale Conjunctivae, Scleral Icterus (R), Scleral Icterus (L) Neck: positive: Supple. negative: Decreased range of motion, Tender midline Respiratory/Chest: negative: Respiratory Distress, Accessory Muscle Use Cardiovascular: positive: Regular Rate Musculoskeletal: positive: Normal Inspection. negative: Decreased Range of Motion Extremity: positive: Normal Capillary Refill, Normal Inspection, Normal Range of Motion, Other (L elbow without skin changes, no erythema/warmth, no rash. (+) tenderness to lateral epicondyle, FROM, 5/5 strength. GOod distal pulses, good irrigator gravity flow. FUll sensory function, NVI.). negative: Tender, Pedal Edema Integumentary: positive: Normal Color, Dry. negative: Jaundice, Rash Neurologic: positive: Fully Oriented, Alert, Normal Mood/Affect ED Treatment Course - Medications Given in the ED: ED Medications Discontinued Medications Generic Name Dose Route Start Last Admin Trade Name Rashid PRN Reason Stop Dose Admin Ketorolac Tromethamine 30 mg 07/04/19 19:19 07/04/19 19:22 Toradol Injection - IM 07/04/19 19:20 30 mg ONCE ONE Administration Medical Decision Making - Medical Decision Making 07/04/19 19:44 44 yo F w/ atraumatic L elbow pain, likely lateral epicondylitis. Xray WNLs. WIll give NSAIDs, RICE, refer to ortho. Return for worsening/concerning symptoms Pt verbalizes understanding and agrees with plan. Discharge - Discharge Information Problems reviewed: Yes Clinical Impression/Diagnosis: Elbow pain, left Epicondylitis, lateral Qualifiers: Laterality: left Qualified Code(s): M77.12 - Lateral epicondylitis, left elbow Condition: Stable Disposition: HOME - Follow up/Referral Referrals: Mariusz Mcmillan DO [Staff Physician] - - Patient Discharge Instructions Patient Printed Discharge Instructions: DI for Lateral Epicondylitis (Tennis Elbow) Additional Instructions: Take ibuprofen as needed for pain. Make an appointment with Dr. Mcmillan and with your PMD. Return for worsening/concerning symptoms. Try not to use your left elbow too much. - Post Discharge Activity
== END 2019-07-04 19:56 | disposition home or self-care (01) ==
LOC: JERFT 17:41
PROC: 3E0233Z Introduction of Anti-inflammatory into Muscle, Percutaneous Approach (ICD-10-PCS; principal; 2019-07-04)
DX: M77.12 Lateral epicondylitis, left elbow (principal); E78.00 Pure hypercholesterolemia, unspecified; F41.9 Anxiety disorder, unspecified; J45.909 Unspecified asthma, uncomplicated
CPT/HCPCS: 73070-TC-LT-FY; 99282-25

== ENCOUNTER 2020-09-24 23:56 | Emergency (ER) | payer OTHER ==
[2020-09-25 00:18] VITALS: TEMP 99.2; BMI 31.9
[2020-09-25 01:10] LABS: BASO % 0.3 % (0-2.0); EOS % 2.2 % (0-4.5); HEMATOCRIT 35.3 % (32.4-45.2); HEMOGLOBIN 11.7 GM/dL (10.7-15.3); LYMPH % 47.4 % (8-40); MCH 30.4 pg (25.7-33.7); MCHC 33.1 g/dl (32.0-36.0); MEAN CELL VOLUME 91.9 fl (80-96); MEAN PLT VOLUME 8.8 fl (7.5-11.1); MONO % 7.9 % (3.8-10.2); NEUT % 42.2 % (42.8-82.8); PLATELET COUNT 194 K/MM3 (134-434); RBC 3.85 M/mm3 (3.60-5.2); RDW 13.3 % (11.6-15.6); WHITE BLOOD COUNT 7.2 K/mm3 (4.0-10.0)
[2020-09-25 01:18] LABS: INR 0.9 (0.83-1.09); PROTHROMBIN TIME (PATIENT) 11.1 SEC (9.7-13.0)
[2020-09-25 01:21] LABS: ACTIVATED PTT 29.4 SECONDS (25.2-36.5)
[2020-09-25 01:30] LABS: POTASSIUM 3.9 mmol/L (3.5-5.1)
[2020-09-25 01:33] LABS: ALBUMIN 3.4 g/dl (3.4-5.0); BLOOD UREA NITROGEN 17.2 mg/dL (7-18); CALCIUM 8.5 mg/dL (8.5-10.1)
[2020-09-25 01:36] LABS: CREATININE 0.5 mg/dL (0.55-1.3)
[2020-09-25 01:37] LABS: BILIRUBIN,TOTAL 0.2 mg/dL (0.2-1); TOT PROT 6.7 g/dl (6.4-8.2)
[2020-09-25 02:32] VITALS: BP 129/64; PULSE 72
[2020-09-25 02:44] LABS: URINE APPEARANCE Clear; URINE BILIRUBIN Negative (NEGATIVE); URINE COLOR Yellow; URINE GLUCOSE (UA) Negative (NEGATIVE); URINE KETONE Negative (NEGATIVE); URINE LEUK ESTERASE Negative (NEGATIVE); URINE NITRITE Negative (NEGATIVE); URINE PROTEIN Negative (NEGATIVE); URINE UROBILINOGEN 0.2 mg/dL (0.2-1.0)
== END 2020-09-25 04:03 | disposition home or self-care (01) ==
LOC: JER 23:56
DX: O20.0 Threatened abortion (principal); Z3A.10 10 weeks gestation of pregnancy
CPT/HCPCS: 36415; 76817-TC; 80053; 81003; 84702; 85025; 85610; 85730; 86850; 86870; 86900; 86901; 86902; 87086; 99284-25

== ENCOUNTER 2020-09-26 10:05 | Emergency (ER) | payer OTHER ==
[2020-09-26 10:20] VITALS: PULSE 66; BMI 28.3
[2020-09-26 10:31] VITALS: BP 114/70; TEMP 99.1
[2020-09-26 12:11] LABS: PH,URINE 7.5 (5.0-8.0); URINE APPEARANCE CLEAR; URINE BILIRUBIN NEGATIVE (NEGATIVE); URINE COLOR YELLOW; URINE GLUCOSE (UA) NEGATIVE (NEGATIVE); URINE KETONE NEGATIVE (NEGATIVE); URINE LEUK ESTERASE NEGATIVE (NEGATIVE); URINE NITRITE NEGATIVE (NEGATIVE); URINE PROTEIN NEGATIVE (NEGATIVE); URINE UROBILINOGEN 0.2 mg/dL (0.2-1.0)
== END 2020-09-26 13:14 | disposition home or self-care (01) ==
LOC: JER 10:05
DX: O20.0 Threatened abortion (principal)
CPT/HCPCS: 36415; 76817-TC; 81003; 84702; 87086; 99284-25